=== PATIENT | female | born 1985 | race African-American/Black ===

== ENCOUNTER 2017-01-23 11:12 | Inpatient (IN) | payer OTHER ==
[~2017-01-23] VITALS: Ht 175.3 cm; Wt 63.0 kg
[2017-01-23] MEDS ORDERED: NKM (12:42)
[2017-01-23 12:43] VITALS: BP 99/56
[2017-01-23 12:55] LABS: APPEARANCE,URINE CLEAR; KETONES,URINE 1+ (NEGATIVE); LEUKOCYTE ESTERASE ,URINE 1+ (NEGATIVE); NITRITE,URINE NEGATIVE (NEGATIVE); PH,URINE 6.5 (4.5-8.0); PROTEIN,URINE 1+ (NEGATIVE); UROBILINOGEN,URINE NORMAL MG/DL (0.0-1.0)
[2017-01-23 13:24] LABS: BACTERIA,URINE FEW /HPF; MUCUS,URINE FEW /LPF (NONE/OCC); RBC,URINE 0-2 /HPF (0 - 2); SQUAMOUS EPITHELIAL CELL,UR FEW /LPF (NONE/OCC)
[2017-01-23 13:52] VITALS: BP 99/62
--- NOTE | 2017-01-23 14:13 | Emergency Room Report ---
History of Present Illness General Chief Complaint: General Complaint Source: Patient Present Illness HPI This patient has a history of hydradenitis suppurativa. She is sent in by Dr. Cohen for her persistent hidradenitis suppurativa and for surgical treatment. Patient has no other complaints. Allergies: Coded Allergies: No Known Allergies (Unverified , 01/23/17) Patient History Past Medical History: none, see triage record Social History: Denies: alcohol use, drug use, smoking Last Menstrual Period: 2 weeks ago Now: No Reviewed Nursing Documentation: PMH: Agreed, PSxH: Agreed Nursing Documentation-PMH Past Medical History: No History, Except For Review of Systems All Other Systems: negative except mentioned in HPI Physical Exam Vital Signs Date Time Temp Pulse Resp B/P Pulse Ox O2 Delivery O2 Flow Rate FiO2 01/23/17 11:35 98.4 83 18 113/77 98 Room Air Sp02 EP Interpretation: reviewed, normal General Appearance: no apparent distress, alert, GCS 15, non-toxic Head: normocephalic, atraumatic Eyes: bilateral eye PERRL, bilateral eye normal inspection ENT: hearing grossly normal, normal pharynx, no angioedema, normal voice Neck: full range of motion, supple/symm/no masses Respiratory: chest non-tender, lungs clear, normal breath sounds, speaking full sentences Cardiovascular #1: regular rate, rhythm, no edema Gastrointestinal: normal bowel sounds, non tender, soft, non-distended, no guarding, no rebound Rectal: deferred Musculoskeletal: back normal, gait/station normal, normal range of motion, non- tender Neurologic: alert, oriented x3, responsive, motor strength/tone normal, sensory intact, speech normal Psychiatric: judgement/insight normal, memory normal, mood/affect normal, no suicidal/homicidal ideation Skin: warm/dry, well hydrated, other - Buttock nodules c/w hidradinitis Medical Decision Making Diagnostic Impression: Primary Impression: Hidradenitis suppurativa ER Course This patient has hidradenitis suppurativa that is resistant to conservative treatment. Patient is admitted for surgical treatment by Dr. Cohen. Labs Test 01/23/17 12:18 01/23/17 14:09 Urine Color Yellow Urine Appearance Clear Urine pH 6.5 (4.5-8.0) Urine Specific [place] 1.015 (1.005-1.035) Urine Protein 1+ (NEGATIVE) Urine Glucose (UA) Negative (NEGATIVE) Urine Ketones 1+ (NEGATIVE) Urine Occult Blood Negative (NEGATIVE) Urine Nitrite Negative (NEGATIVE) Urine Bilirubin Negative (NEGATIVE) Urine Urobilinogen Normal MG/DL (0.0-1.0) Urine Leukocyte Esterase 1+ (NEGATIVE) Urine RBC 0-2 /HPF (0 - 2) Urine WBC 2-4 /HPF (0 - 2) Urine Squamous Epithelial Cells Few /LPF (NONE/OCC) Urine Bacteria Few /HPF (NONE) Urine Mucus Few /LPF (NONE/OCC) Urine HCG, Qualitative Negative White Blood Count 4.6 K/UL (4.8-10.8) Red Blood Count 4.98 M/UL (4.20-5.40) Hemoglobin 15.1 G/DL (12.0-16.0) Hematocrit 46.3 % (37.0-47.0) Mean Corpuscular Volume 93 FL (80-99) Mean Corpuscular Hemoglobin 30.3 PG (27.0-31.0) Mean Corpuscular Hemoglobin Concent 32.5 G/DL (32.0-36.0) Red Cell Distribution Width 11.6 % (11.6-14.8) Platelet Count 314 K/UL (150-450) Mean Platelet Volume 6.5 FL (6.5-10.1) Neutrophils (%) (Auto) 48.4 % (45.0-75.0) Lymphocytes (%) (Auto) 45.3 % (20.0-45.0) Monocytes (%) (Auto) 4.1 % (1.0-10.0) Eosinophils (%) (Auto) 1.1 % (0.0-3.0) Basophils (%) (Auto) 1.2 % (0.0-2.0) Last Vital Signs Date Time Temp Pulse Resp B/P Pulse Ox O2 Delivery O2 Flow Rate FiO2 01/23/17 13:52 64 16 99/62 100 Room Air 01/23/17 11:35 98.4 Disposition: ADMITTED INPATIENT Condition: Stable Referrals: MACY CHO (PCP) PAPO ZHANG D.O. January 23, 2017 14:13
[2017-01-23 14:27] LABS: BASOPHILS % (AUTO) 1.2 % (0.0-2.0); EOSINOPHILS % (AUTO) 1.1 % (0.0-3.0); LYMPHOCYTES % (AUTO) 45.3 % (20.0-45.0); MEAN CORPUSCULAR HEMOGLOBIN 30.3 PG (27.0-31.0); MEAN CORPUSCULAR HGB CONC 32.5 G/DL (32.0-36.0); MEAN CORPUSCULAR VOLUME 93 FL (80-99); MEAN PLATELET VOLUME 6.5 FL (6.5-10.1); MONOCYTES % (AUTO) 4.1 % (1.0-10.0); NEUTROPHILS % (AUTO) 48.4 % (45.0-75.0); PLATELET COUNT 314 K/UL (150-450); RED BLOOD COUNT 4.98 M/UL (4.20-5.40); RED CELL DISTRIBUTION WIDTH 11.6 % (11.6-14.8); WHITE BLOOD COUNT 4.6 K/UL (4.8-10.8)
[2017-01-23] MEDS ORDERED: Milk of Magnesia 30ml Ud ORAL PRN (15:15)
[2017-01-23] MEDS ORDERED: Morphine Sulfate 2mg/ml Inj IVP PRN (15:15)
[2017-01-23] MEDS ORDERED: Zolpidem 5mg tab ORAL PRN (15:15)
[2017-01-23] MEDS ORDERED: Morphine Sulfate 4mg/ml Inj IVP PRN (15:15)
[2017-01-23] MEDS ORDERED: Miralax 17gm pkt ORAL PRN (15:15)
[2017-01-23] MEDS ORDERED: Norco 10mg/325mg tab ORAL PRN (15:30)
[2017-01-23] MEDS ORDERED: Norco 5mg/325mg tab ORAL PRN (15:30)
--- NOTE | 2017-01-23 15:31 | History and Physical ---
History of Present Illness General Date patient seen: January 23, 2017 Time patient seen: 15:30 Reason for Hospitalization: abscess Present Illness HPI 31y/o female with pmh of hidradenitis suppurative who presents with abscess. Pt has noted increased pain and drainage of L buttock abscess. She notes purulent drainage. Denies fevers/chills, chest pain, SOB, n/v. She has tried oral antibiotics without a good response. Allergies: Coded Allergies: No Known Allergies (Unverified , 01/23/17) Medication History Scheduled No Known Medications* (NKM - No Known Medications*), 0 ., (Reported) Patient History History Provided By: Patient, Medical Record, PMD Healthcare decision maker Resuscitation status Advanced Directive on File Past Medical/Surgical History Past Medical/Surgical History: (1) Hidradenitis suppurativa Family History Family History: Patient reports no known family medical history. Social History Social History: (1) No significant social history Review of Systems ROS Narrative CONSTITUTIONAL: No weight loss, fever, chills, weakness or fatigue. HEENT: Eyes: No visual loss, blurred vision, double vision or yellow sclerae. Ears, Nose, Throat: No hearing loss, sneezing, congestion, runny nose or sore throat. SKIN: No rash or itching. CARDIOVASCULAR: No chest pain, chest pressure or chest discomfort. No palpitations or edema. RESPIRATORY: No shortness of breath, cough or sputum. GASTROINTESTINAL: No anorexia, nausea, vomiting or diarrhea. No abdominal pain or blood. NEUROLOGICAL: No headache, dizziness, syncope, paralysis, ataxia, numbness or tingling in the extremities. No change in bowel or bladder control. MUSCULOSKELETAL: No muscle, back pain, joint pain or stiffness. HEMATOLOGIC: No anemia, bleeding or bruising. LYMPHATICS: No enlarged nodes. No history of splenectomy. PSYCHIATRIC: No history of depression or anxiety. ENDOCRINOLOGIC: No reports of sweating, cold or heat intolerance. No polyuria or polydipsia. ALLERGIES: No history of asthma, hives, eczema or rhinitis. Physical Exam Physical Exam Narrative General: alert, cooperative, no distress, appears stated age Head: normocephalic, without obvious abnormality, atraumatic Eyes: conjunctivae/corneas clear. PERRL, EOM's intact Throat: lips, mucosa, and tongue normal. MMM Neck: supple, symmetrical, trachea midline, and no JVD Lungs: clear to auscultation bilaterally Heart: regular rate and rhythm, S1, S2 normal, no murmur, click, rub or gallop Abdomen: soft, non-tender, non-distended, bowel sounds normal; no masses or organomegaly Extremities: extremities normal, atraumatic, no cyanosis or edema Pulses: 2+ and symmetric Skin: skin color, texture, turgor normal; +abscesses of L buttocks Neurologic: grossly normal, no focal deficits Last 24 Hour Vital Signs Date Time Temp Pulse Resp B/P Pulse Ox O2 Delivery O2 Flow Rate FiO2 01/23/17 13:52 64 16 99/62 100 Room Air 01/23/17 12:43 67 27 99/56 100 Room Air 01/23/17 11:35 98.4 83 18 113/77 98 Room Air Laboratory Tests Test 01/23/17 12:18 01/23/17 14:09 01/23/17 15:20 Urine Color Yellow Urine Appearance Clear Urine pH 6.5 (4.5-8.0) Urine Specific [place] 1.015 (1.005-1.035) Urine Protein 1+ (NEGATIVE) H Urine Glucose (UA) Negative (NEGATIVE) Urine Ketones 1+ (NEGATIVE) H Urine Occult Blood Negative (NEGATIVE) Urine Nitrite Negative (NEGATIVE) Urine Bilirubin Negative (NEGATIVE) Urine Urobilinogen Normal MG/DL (0.0-1.0) Urine Leukocyte Esterase 1+ (NEGATIVE) H Urine RBC 0-2 /HPF (0 - 2) Urine WBC 2-4 /HPF (0 - 2) Urine Squamous Epithelial Cells Few /LPF (NONE/OCC) Urine Bacteria Few /HPF (NONE) Urine Mucus Few /LPF (NONE/OCC) H Urine HCG, Qualitative Negative White Blood Count 4.6 K/UL (4.8-10.8) L Red Blood Count 4.98 M/UL (4.20-5.40) Hemoglobin 15.1 G/DL (12.0-16.0) Hematocrit 46.3 % (37.0-47.0) Mean Corpuscular Volume 93 FL (80-99) Mean Corpuscular Hemoglobin 30.3 PG (27.0-31.0) Mean Corpuscular Hemoglobin Concent 32.5 G/DL (32.0-36.0) Red Cell Distribution Width 11.6 % (11.6-14.8) Platelet Count 314 K/UL (150-450) Mean Platelet Volume 6.5 FL (6.5-10.1) Neutrophils (%) (Auto) 48.4 % (45.0-75.0) Lymphocytes (%) (Auto) 45.3 % (20.0-45.0) H Monocytes (%) (Auto) 4.1 % (1.0-10.0) Eosinophils (%) (Auto) 1.1 % (0.0-3.0) Basophils (%) (Auto) 1.2 % (0.0-2.0) Prothrombin Time Pending Prothromb Time International Ratio Pending Activated Partial Thromboplast Time Pending Sodium Level Pending Potassium Level Pending Chloride Level Pending Carbon Dioxide Level Pending Blood Urea Nitrogen Pending Creatinine Pending Estimat Glomerular Filtration Rate Pending Glucose Level Pending Calcium Level Pending Height (Feet): 5 Height (Inches): 9.00 Weight (Pounds): 139 Medications Current Medications Medications (Trade) Dose Ordered Sig/Keith Route PRN Reason Start Time Stop Time Status Last Admin Dose Admin Acetaminophen (Tylenol) 650 mg Q4H PRN ORAL Mild Pain (Pain Scale 1-3) 01/23/17 15:15 02/22/17 15:14 UNV Acetaminophen/ Hydrocodone Bitart (Logan 10/325) 1 ea Q4H PRN ORAL For severe Pain 01/23/17 15:30 01/30/17 15:29 UNV Acetaminophen/ Hydrocodone Bitart ([place] 5/325) 1 tab Q4H PRN ORAL Moderate Pain (Pain Scale 4-6) 01/23/17 15:30 01/30/17 15:29 UNV Bisacodyl (Dulcolax) 10 mg HSPRN PRN RECTAL Constipation 01/23/17 15:15 02/22/17 15:14 UNV Cefazolin Sodium/ Dextrose (Ancef/D5W) 55 ml @ 110 mls/hr Q8HR IVPB 01/23/17 22:00 01/30/17 21:59 UNV Dextrose STAT PRN IV Hypoglycemia 01/23/17 15:15 02/22/17 15:14 UNV Dextrose/Sodium Chloride (D5 0.45% NS) 1,000 ml @ 75 mls/hr [id number] IV 01/24/17 06:00 02/23/17 05:59 UNV Diphenhydramine HCl (Benadryl) 25 mg Q6H PRN ORAL Itching/Pruritis 01/23/17 15:15 02/22/17 15:14 UNV Docusate Sodium (Colace) 100 mg EVERY 12 HOURS ORAL 01/24/17 09:00 02/23/17 08:59 UNV Magnesium Hydroxide (Mom) 30 ml HSPRN PRN ORAL Constipation 01/23/17 15:15 02/22/17 15:14 UNV Morphine Sulfate (Morphine Sulfate) 2 mg Q4H PRN IVP Moderate Pain (Pain Scale 4-6) 01/23/17 15:15 01/30/17 15:14 UNV Morphine Sulfate (Morphine Sulfate) 4 mg Q4H PRN IVP Severe Pain (Pain Scale 7-10) 01/23/17 15:15 01/30/17 15:14 UNV Ondansetron HCl (Zofran) 4 mg Q6H PRN IVP Nausea & Vomiting 01/23/17 15:30 02/22/17 15:29 UNV Polyethylene Glycol (Miralax) 17 gm HSPRN PRN ORAL Constipation 01/23/17 15:15 02/22/17 15:14 UNV Zolpidem Tartrate (Ambien) 5 mg HSPRN PRN ORAL Insomnia 01/23/17 15:15 02/22/17 15:14 UNV Assessment/Plan Problem List: (1) Abscess ICD Codes: L02.91 - Cutaneous abscess, unspecified SNOMED: 404151925 (2) Hidradenitis suppurativa ICD Codes: L73.2 - Hidradenitis suppurativa SNOMED: 68242716 Status: stable Assessment/Plan Admit to inpt Plastic surgery consulted Check blood cultures Start IV abx (01/23-) Pain control, bowel regimen, supportive care IVFs If patient is required to have surgery, based on the patient's medical history, and other available ancillary data, the patient is a LOW risk for an INTERMEDIATE risk procedure. Per the most recent ACC/AHA guidelines, the patient does not need any further cardiopulmonary testing prior to the procedure and there do not appear to be any clear medical contraindications to proceeding with the proposed procedure. Gayle Perez M.D. January 23, 2017 15:31
[2017-01-23 15:52] LABS: ANION GAP 12 (5-15); CALCIUM 9.3 mg/dL (8.6-10.2); CARBON DIOXIDE 27 mEQ/L (20-30); CHLORIDE 100 mEQ/L (98-107); CREATININE 0.7 mg/dL (0.5-0.9); GLOMERULAR FILTRATION RATE > 60 mL/min (>60); HEMOLYSIS 4; POTASSIUM 3.7 mEQ/L (3.4-4.9); SODIUM 139 mEQ/L (135-145)
[2017-01-23 15:57] LABS: PROTHROMBIN TIME 10.6 SEC (9.30-11.50)
[2017-01-23] MEDS ORDERED: ceFAZolin sod 1 GM in D5W 55 ML IVPB SCH (16:00)
[2017-01-23] MEDS: D5 1/2NS 1,000 ML IV SCH (16:00)
[2017-01-23] MEDS ORDERED: NS 0 ML IV ONE (16:59)
[2017-01-23 18:23] VITALS: BP 106/52
[2017-01-23] MEDS ORDERED: LORazepam 1mg tab ORAL PRN (19:45)
[2017-01-23 20:08] VITALS: BP 107/68
[2017-01-23] MEDS: Docusate 100mg cap ORAL SCH (21:24)
[2017-01-23 23:59] VITALS: BP 125/76
[2017-01-24] VITALS (16 sets, daily range): BP systolic 97–125; BP diastolic 53–76
[2017-01-24] MEDS: D5 1/2NS 1,000 ML IV SCH ×2 (04:48→17:00)
[2017-01-24] MEDS: Docusate 100mg cap ORAL SCH ×2 (08:58→20:18)
[2017-01-24] MEDS: ceFAZolin sod 1 GM in D5W 55 ML IVPB SCH ×2 (09:00→17:00)
--- NOTE | 2017-01-24 09:55 | Diagnostic Imaging Report ---
Indication: Chest Pain Comparison: None A single view chest radiograph was obtained. Findings: Cardiomediastinal appearance is within normal limits for age. Pulmonary vascularity is appropriate. The diaphragmatic contour is smooth and costophrenic angles are sharp. No pleural effusions are identified. The bones are unremarkable. Impression: No acute findings
[2017-01-24] MEDS ORDERED: Lidocaine 1% Plain 30 ml INJ ONE (10:00)
[2017-01-24] MEDS ORDERED: Heparin 2000 units/Ns 1000ml INJ ONE (10:00)
[2017-01-24] MEDS ORDERED: Sodium Bicarbonate 8.4% 50ml Inj IV ONE (10:00)
[2017-01-24] MEDS ORDERED: Lidocaine 1% 10mg/ml/Epi 0.005mg/ml 30ml vial INJ ONE (10:28)
[2017-01-24] MEDS ORDERED: Bacitracin 50000 Units Vial ONE (10:28)
[2017-01-24] MEDS ORDERED: Neostigmine 1mg/ml 10ml Inj ONE (10:45)
[2017-01-24] MEDS ORDERED: Morphine Sulfate 10mg/ml Inj ONE (10:45)
[2017-01-24] MEDS ORDERED: Midazolam 2mg/2ml Inj ONE (10:45)
[2017-01-24] MEDS ORDERED: DiphenhydrAMINE 50mg/ml Inj IVP PRN ×2 (10:45→14:00)
[2017-01-24] MEDS ORDERED: Ketorolac 30mg Inj ONE (10:45)
[2017-01-24] MEDS ORDERED: Glycopyrrolate 0.2mg/ml 1ml Vial ONE (10:45)
[2017-01-24] MEDS ORDERED: Zemuron 50mg/5ml Inj IV ONE ×2 (10:45→10:54)
[2017-01-24] MEDS ORDERED: LR 1000ml ONE (10:45)
[2017-01-24] MEDS ORDERED: fentaNYL 100 mcg/2 mL IV ONE (10:45)
[2017-01-24] MEDS ORDERED: Succinylcholine 20mg/ml 10ml vial ONE (10:45)
[2017-01-24] MEDS ORDERED: Sterile Water Irrig 1000ml IRRIG ONE (10:45)
[2017-01-24] MEDS ORDERED: Zolpidem 5mg tab ORAL PRN (10:45)
[2017-01-24] MEDS ORDERED: Propofol 10mg/ml 20ml IV ONE (10:45)
[2017-01-24] MEDS ORDERED: NS Irrig 1000ml ONE (10:45)
--- NOTE | 2017-01-24 10:45 | Pre-Procedure Note/Attestation ---
Pre-Procedure Note/Attestation Complete Prior to Procedure Planned Procedure: left Procedure Narrative: Left buttock debridement and flap elevation Attestation I attest that I discussed the nature of the procedure; its benefits; risks and complications; and alternatives (and the risks and benefits of such alternatives ), prior to the procedure, with the patient (or the patient's legal direct sales representative). I attest that, if there was a reasonable possibility of needing a blood transfusion, the patient (or the patient's legal direct sales representative) was given the [facility] standardized written summary, pursuant to the Bernard Fredis Blood Safety Act ([place] Health and Safety Code # 1645, as amended). I attest that I re-evaluated the patient just prior to the surgery and that there has been no change in the patient's H&P, except as documented below: MACY CHO January 24, 2017 10:45
--- NOTE | 2017-01-24 10:51 | Operative Note - PDOC ---
Operative Note Operative Note Pre-op Diagnosis: Left buttock infected mass Procedure: Excision of left buttock mass Post-op Diagnosis: same as pre-op Surgeon: Minnie Camera Control Operator: Bethel Anesthesia: general Specimen: yes Complications: none Condition: stable Estimated Blood Loss: none Drains: none Implant(s) used?: No MACY CHO January 24, 2017 10:51
--- NOTE | 2017-01-24 11:13 | Diagnostic Imaging Report ---
Indication: terminal operator venous access Findings: After the indications, procedure, risks, complications, and alternatives of the procedure were explained, written informed consent was obtained. The left upper extremity was prepped with alcohol. All elements of maximal sterile barrier technique were followed including usage of a cap, mask, sterile gown, sterile gloves, hand hygiene and a large sterile sheet. Sonographic evaluation of the upper extremity was performed demonstrating a patent and compressible brachial vein. Access was obtained under real-time ultrasound guidance and digital image was saved and archived. An .018 wire was introduced. Needle exchanged for a 5 Icelandic peel-away sheath. Measurements were obtained. A 5 Icelandic dual-lumen Power PICC line catheter was cut to 43 cm and introduced over the wire. Peel-away sheath and wire were removed.Catheter was secured to the skin using 2-0 Prolene suture. Both ports aspirate and flush easily. Fluoroscopic Images show distal tip in the superior vena cava. Total fluoroscopic time 0.2 minutes. Impression: Successful placement of an upper extremity PICC line catheter
--- NOTE | 2017-01-24 13:44 | Anethesia Preoperative Eval ---
Anesthesia Pre-op PMH/ROS General Date of Evaluation: January 24, 2017 Time of Evaluation: 10:40 Anesthesiologist: Kelley ASA Score: ASA 2 Mallampati Score Class I : Soft palate, uvula, fauces, pillars visible Class II: Soft palate, uvula, fauces visible Class III: Soft palate, base of uvula visible Class IV: Only hard plate visible Mallampati Classification: Class II Surgeon: Minnie Diagnosis: L groin HS Surgical Procedure: Excision of L groin HS Anesthesia History: none Family History: no anesthesia problems Allergies: Coded Allergies: No Known Allergies (Unverified , 01/23/17) Medications: see eMAR Past Medical History Cardiovascular: Denies: CAD, HTN, [place], arrhythmia, other, valve dz Pulmonary: Denies: COPD, JOHN, asthma, other Gastrointestinal/Genitourinary: Reports: GERD, Denies: CRI, ESRD, other Neurologic/Psychiatric: Denies: CVA, TIA, dementia, depression/anxiety, other Endocrine: Denies: DM, hypothyroidism, other, steroids HEENT: Denies: OMAHA (L), OMAHA (R), cataract (L), cataract (R), glaucoma, other Hematology/Immune: Denies: DVT, anemia, bleeding disorder, other Musculoskeletal/Integumentary: Denies: DDD, DJD, OA, RA, edema, other PMH Narrative: as above PSxH Narrative: Pilonidal cyst Anesthesia Pre-op Phys. Exam Physician Exam Last Vital Signs Date Time Temp Pulse Resp B/P Pulse Ox O2 Delivery O2 Flow Rate FiO2 01/24/17 13:15 48 15 97/60 100 Nasal Cannula 2.0 01/24/17 12:14 98.5 Constitutional: NAD Neurologic: CN 2-12 intact Cardiovascular: RRR Respiratory: CTA Gastrointestinal: S/NT/ND Airway Exam Mallampati Score: Class II MO: full Neck: flexible ROM: full Teeth: intact Dentures: no lower, no upper Anesthesia Pre-op A/P Labs Hematology Test 01/23/17 14:09 White Blood Count 4.6 K/UL (4.8-10.8) L Red Blood Count 4.98 M/UL (4.20-5.40) Hemoglobin 15.1 G/DL (12.0-16.0) Hematocrit 46.3 % (37.0-47.0) Mean Corpuscular Volume 93 FL (80-99) Mean Corpuscular Hemoglobin 30.3 PG (27.0-31.0) Mean Corpuscular Hemoglobin Concent 32.5 G/DL (32.0-36.0) Red Cell Distribution Width 11.6 % (11.6-14.8) Platelet Count 314 K/UL (150-450) Mean Platelet Volume 6.5 FL (6.5-10.1) Neutrophils (%) (Auto) 48.4 % (45.0-75.0) Lymphocytes (%) (Auto) 45.3 % (20.0-45.0) H Monocytes (%) (Auto) 4.1 % (1.0-10.0) Eosinophils (%) (Auto) 1.1 % (0.0-3.0) Basophils (%) (Auto) 1.2 % (0.0-2.0) Coagulation Test 01/23/17 15:20 Prothrombin Time 10.6 SEC (9.30-11.50) Prothromb Time International Ratio 1.0 (0.9-1.1) Activated Partial Thromboplast Time 30 SEC (23-33) Chemistry Test 01/23/17 15:20 Sodium Level 139 mEQ/L (135-145) Potassium Level 3.7 mEQ/L (3.4-4.9) Chloride Level 100 mEQ/L (98-107) Carbon Dioxide Level 27 mEQ/L (20-30) Anion Gap 12 (5-15) Blood Urea Nitrogen 21 mg/dL (7-23) Creatinine 0.7 mg/dL (0.5-0.9) Estimat Glomerular Filtration Rate > 60 mL/min (>60) Glucose Level 96 mg/dL (74-106) Calcium Level 9.3 mg/dL (8.6-10.2) Risk Assessment & Plan Assessment: ASA 2 Plan: GA with ETT prone position Status Change Before Surgery: No Pre-Antibiotics Drug: Ancef 1gr. Given Within 1 Hr of Incision: Yes Time Given: 10:55 MARIA ALEJANDRE M.D. January 24, 2017 13:44
[2017-01-24] MEDS ORDERED: LR 1000ml 1,000 ML IVLG SCH (13:46)
--- NOTE | 2017-01-24 13:46 | Immediate Post-Op Evaluation ---
Immediate Post-Op Evalulation Immediate Post-Op Evalulation Procedure: Excision of L groin HS Date of Evaluation: January 24, 2017 Time of Evaluation: 12:18 IV Fluids: 800 Blood Products: n0ne Estimated Blood Loss: 50 Urinary Output: none Blood Pressure Systolic: 116 Blood Pressure Diastolic: 54 Pulse Rate: 76 Respiratory Rate: 20 O2 Sat by Pulse Oximetry: 99 Temperature (Fahrenheit): 97.6 Pain Score (1-10): 2 Nausea: No Vomiting: No Complications NONE Patient Status: reacts, patent, extubated, none Hydration Status: adequate MARIA ALEJANDRE M.D. January 24, 2017 13:46
[2017-01-24] MEDS ORDERED: Midazolam 2mg/2ml Inj IVP PRN (14:00)
[2017-01-24] MEDS ORDERED: Metoclopramide 10mg/2ml Inj IVP PRN (14:00)
[2017-01-24] MEDS ORDERED: Meperidine 25mg/0.5ml Inj IV PRN (14:00)
[2017-01-24] MEDS ORDERED: Hydromorphone 0.5mg/0.5ml inj IVP PRN (14:00)
[2017-01-24] MEDS: PCA HYDROmorphone 1mg/ml 30 ML IV PRN (14:12)
[2017-01-24] MEDS ORDERED: Rate Change PCA 1 Each MISC PRN (14:30)
--- NOTE | 2017-01-24 15:49 | Cardiology Report ---
APPROVED REPORT EKG Measurement Heart [id number] CT [id number] Sinus bradycardia Otherwise normal ECG
[2017-01-24] MEDS ORDERED: NovoLOG Insulin Flexpen SUBQ SCH (17:00)
--- NOTE | 2017-01-24 17:48 | General Progress Note ---
Assessment/Plan Problem List: (1) Abscess ICD Codes: L02.91 - Cutaneous abscess, unspecified SNOMED: 852808522 (2) Hidradenitis suppurativa ICD Codes: L73.2 - Hidradenitis suppurativa SNOMED: [id number] Status: stable Assessment/Plan s/p excision of left buttock mass on 01/24/17 - [facility] plastic surgery rec's - cont IV abx - F/u cultures - encourage mobilization/ambulation - encourage incentive spirometry to optimize pulmonary hygiene - DVT/GI prophylaxis as appropriate - pain control, supportive care, bowel regimen FULL CODE A total of 32min of extra time was spent [id number] in addition to normal encounter time. D/w pt, RN, surgery regarding mgmt and disposition Subjective Date patient seen: January 24, 2017 Time patient seen: 17:45 ROS Limited/Unobtainable: No Constitutional: Reports: no symptoms HEENT: Reports: no symptoms Cardiovascular: Reports: no symptoms Respiratory: Reports: no symptoms Gastrointestinal/Abdominal: Reports: no symptoms Genitourinary: Reports: no symptoms Neurologic/Psychiatric: Reports: no symptoms Endocrine: Reports: no symptoms Hematologic/Lymphatic: Reports: no symptoms Allergies: Coded Allergies: No Known Allergies (Unverified , 01/23/17) Subjective s/p excision of left buttock mass today Doing well Pain controlled Tolerating diet Denies f/c, n/v, d/c, chest pain, SOB Objective Last 24 Hour Vital Signs Date Time Temp Pulse Resp B/P Pulse Ox O2 Delivery O2 Flow Rate FiO2 01/24/17 16:00 97.7 53 20 110/68 99 Room Air 01/24/17 15:59 18 01/24/17 15:29 18 01/24/17 15:14 18 01/24/17 14:59 20 01/24/17 14:50 97.2 50 20 108/56 97 Room Air 01/24/17 14:44 20 01/24/17 14:42 98.6 01/24/17 14:20 20 01/24/17 14:15 98.6 59 15 102/64 100 Room Air 01/24/17 14:12 20 01/24/17 14:00 51 15 100/57 100 Room Air 01/24/17 13:46 76 20 99 01/24/17 13:45 46 15 102/54 100 Room Air 01/24/17 13:30 48 15 101/56 100 Room Air 01/24/17 13:15 48 15 97/60 100 Nasal Cannula 2.0 01/24/17 13:00 50 15 99/58 100 Nasal Cannula 2.0 01/24/17 12:45 54 16 101/63 100 Nasal Cannula 2.0 01/24/17 12:35 47 20 101/54 100 Nasal Cannula 2.0 01/24/17 12:24 48 20 99/54 100 Nasal Cannula 2.0 01/24/17 12:19 48 20 98/55 100 Simple Mask 10.0 01/24/17 12:14 98.5 59 20 111/64 100 Simple Mask 10.0 01/24/17 08:00 97.3 64 20 118/61 98 Room Air 01/24/17 04:00 97.7 74 16 104/53 99 Room Air 01/23/17 23:59 97.7 72 19 125/76 100 Room Air 01/23/17 20:08 97.7 67 19 107/68 96 Room Air 01/23/17 18:30 98.4 60 13 106/52 100 Room Air 01/23/17 18:23 60 13 106/52 100 Room Air Intake and Output 01/23/17 01/24/17 19:00 07:00 Intake Total 480 ml Output Total 200 ml Balance -200 ml 480 ml Intake Oral 480 ml Output Urine Total 200 ml # Voids 3 Height (Feet): 5 Height (Inches): 9.00 Weight (Pounds): 139 Objective General: alert, cooperative, no distress, appears stated age Head: normocephalic, without obvious abnormality, atraumatic Eyes: conjunctivae/corneas clear. PERRL, EOM's intact Throat: lips, mucosa, and tongue normal. MMM Neck: supple, symmetrical, trachea midline, and no JVD Lungs: clear to auscultation bilaterally Heart: regular rate and rhythm, S1, S2 normal, no murmur, click, rub or gallop Abdomen: soft, non-tender, non-distended, bowel sounds normal; no masses or organomegaly Extremities: extremities normal, atraumatic, no cyanosis or edema Pulses: 2+ and symmetric Skin: skin color, texture, turgor normal; no rashes or lesions Neurologic: grossly normal, no focal deficits Gayle Perez M.D. January 24, 2017 17:48
[2017-01-24] MEDS: PCA shift volume MISC SCH (19:29)
[2017-01-24] MEDS: Heparin 5000 units/ml inj SUBQ SCH (20:25)
--- NOTE | 2017-01-24 20:39 | Operative Note - Dictated ---
DATE OF OPERATION: 01/24/2017 PREOPERATIVE DIAGNOSIS: Left buttock and left vulvar infected tissue. POSTOPERATIVE DIAGNOSIS: Left buttock and left vulvar infected tissue. PROCEDURES: 1. Radical excision of left buttock infected mass. 2. Excision of left vulvar infected mass. 3. Elevation of a lateral fasciocutaneous flap for delayed closure of left buttock wound. 4. Elevation of a medial fasciocutaneous flap for delayed closure of left buttock wound. SURGEON: Bety Hartman M.D. SUPERVISOR ASSEMBLING: Eleazar Hugo M.D. ANESTHESIA: General. POSITION: Prone. COMPLICATIONS: None. DRAINS: None. ESTIMATED BLOOD LOSS: Minimal. DISPOSITION: Stable to the recovery room. INDICATIONS FOR SURGERY: This is a 31-year-old female, who presents to the emergency room with infected tissue in her left buttock and left vulvar region complaining of significant pain and drainage in the areas. On evaluation by me, I felt that she was an appropriate candidate for excision of the infected tissue with staged reconstruction. She understood the risks and benefits of surgery and agreed to proceed. DETAILS OF THE OPERATION: The patient was brought to the operating room and after induction of anesthesia was placed in the prone position on the operating room table. The patient's lower back, buttock and perineal regions were prepped and draped in a sterile and usual fashion. We first began by using a marking pen to delineate the two separate areas, one in the left buttock and the other in the left inferior valvular region to delineate elliptical type of incision to be made to excise the tissue. Once this was done, a #15 blade was then used to make elliptical incision around the left buttock mass with the radical excision performed all the way down to the level of the subcutaneous fat. We did come across some purulent fluid, which was then sent for culture as well. Once the infected mass was radically excised, we then turned our attention to the left inferior vulvar tissue. In a similar fashion this tissue was excised in an elliptical fashion all way down to healthy subcutaneous fat. We noted that the left vulvar tissue did not required flap elevation for closure as it was amenable to likely complex closure at a second stage, however, the left buttock wound was quite large measuring approximately 6 x 5 centimeters and was not amenable to direct primary closure. As such, the two flaps were elevated on either side of the wound, first the medial aspect of the tissue was elevated and fasciocutaneous flap was elevated with proximal and distal incisions made to fully mobilize the flap with perforators off of the pudendal artery feeding this flap. In a similar fashion, a laterally based fasciocutaneous flap based off of the perforators of the inferior gluteal artery was elevated as well and it was noted that with this elevation, the flaps could be brought together in proximity without tension, however, given the fact this was an infected case, thus the plan will be to perform a staged closure of the wound in 48 to 72 hours. The wounds were then copiously irrigated. Pulse lavage was used for this purpose. Hemostasis was achieved and the wound were then packed with dressings. The patient tolerated the procedure well and there was no complications. Bety Hartman M.D. DR: MARC JOB#: [id number] CC:
--- NOTE | 2017-01-24 21:09 | Consultation ---
DATE OF CONSULTATION: 01/24/2017 CONSULTING PHYSICIAN: Bety Hartman M.D. REFERRING PHYSICIAN: Shasta Wilkes M.D. HISTORY OF PRESENT ILLNESS: This is a 31-year-old female, who presented to the emergency room with a very painful left buttock abscess. She was started on IV antibiotics. She had been complaining of several days of pain and drainage in the area. PAST MEDICAL HISTORY: Significant for hidradenitis suppurativa. PAST SURGICAL HISTORY: None. MEDICATIONS: None. ALLERGIES: None. PHYSICAL EXAMINATION: GENERAL: The patient is alert and oriented. HEART: Regular rate and rhythm. ABDOMEN: Soft, nontender, and nondistended. EXTREMITIES: Examination of the trunk and lower extremity reveals a large abscess in the region of the left buttock and there is infected mass extending into the perivulvar region on the left side. ASSESSMENT AND PLAN: This is a 31-year-old female, who has got an infected left buttock mass. The patient will be taken to the operating room for wide excision of the area with flap elevation. The patient understands that this will require a staged approach given the fact that this is an infected field. On the first day it will be removing an infected tissue and then on second day, it will be definitive closure of the wound. She understands the risks and benefits and agrees to proceed. Bety Hartman M.D. DR: MEDHAT JOB#: [id number] CC:
[2017-01-25] VITALS: BP 108/63
[2017-01-25] MEDS: ceFAZolin sod 1 GM in D5W 55 ML IVPB SCH ×3 (01:14→17:19)
[2017-01-25 04:00] VITALS: BP 104/65
[2017-01-25] MEDS: PCA shift volume MISC SCH ×2 (07:06→19:00)
[2017-01-25] MEDS: D5 1/2NS 1,000 ML IV SCH ×2 (07:31→21:53)
[2017-01-25 08:00] VITALS: BP 94/33
[2017-01-25] MEDS: Docusate 100mg cap ORAL SCH ×2 (08:17→21:52)
[2017-01-25] MEDS: Heparin 5000 units/ml inj SUBQ SCH ×2 (08:22→21:55)
--- NOTE | 2017-01-25 10:25 | General Progress Note ---
Progress Note Progress Note Pt seen and examined. POD# 1 from debridement of left buttock and flap elevation. Dressings in place. Plan for OR on Monday. MACY Bolton MD January 25, 2017 10:25
--- NOTE | 2017-01-25 10:42 | General Progress Note ---
Assessment/Plan Problem List: (1) Hidradenitis suppurativa ICD Codes: L73.2 - Hidradenitis suppurativa SNOMED: 88536705 (2) Abscess ICD Codes: L02.91 - Cutaneous abscess, unspecified SNOMED: 392788117 Assessment/Plan s/p excision of left buttock mass on 01/24/17 - [facility] plastic surgery rec's - cont IV abx - F/u cultures - encourage mobilization/ambulation - encourage incentive spirometry to optimize pulmonary hygiene - DVT/GI prophylaxis as appropriate - pain control, supportive care, bowel regimen FULL CODE A total of 31min of extra time was spent [id number] in addition to normal encounter time. D/w pt, RN, surgery regarding mgmt and disposition Subjective Date patient seen: January 25, 2017 Time patient seen: 10:39 ROS Limited/Unobtainable: No Allergies: Coded Allergies: No Known Allergies (Unverified , 01/23/17) Subjective No acute events overnight events, no chest pain or dyspnea, no n/v, postop pain well controlled Objective Last 24 Hour Vital Signs Date Time Temp Pulse Resp B/P Pulse Ox O2 Delivery O2 Flow Rate FiO2 01/25/17 08:00 97.5 46 16 94/33 99 Room Air 01/25/17 08:00 16 01/25/17 04:00 16 01/25/17 04:00 98.1 51 16 104/65 98 Room Air 01/25/17 00:00 97.7 52 18 108/63 100 Room Air 01/25/17 00:00 16 01/24/17 20:00 18 01/24/17 20:00 97.3 52 18 125/76 99 Room Air 01/24/17 16:29 20 01/24/17 16:00 97.7 53 20 110/68 99 Room Air 01/24/17 15:59 18 01/24/17 15:29 18 01/24/17 15:14 18 01/24/17 14:59 20 01/24/17 14:50 97.2 50 20 108/56 97 Room Air 01/24/17 14:44 20 01/24/17 14:42 98.6 01/24/17 14:20 20 01/24/17 14:15 98.6 59 15 102/64 100 Room Air 01/24/17 14:12 20 01/24/17 14:00 51 15 100/57 100 Room Air 01/24/17 13:46 76 20 99 01/24/17 13:45 46 15 102/54 100 Room Air 01/24/17 13:30 48 15 101/56 100 Room Air 01/24/17 13:15 48 15 97/60 100 Nasal Cannula 2.0 01/24/17 13:00 50 15 99/58 100 Nasal Cannula 2.0 01/24/17 12:45 54 16 101/63 100 Nasal Cannula 2.0 01/24/17 12:35 47 20 101/54 100 Nasal Cannula 2.0 01/24/17 12:24 48 20 99/54 100 Nasal Cannula 2.0 01/24/17 12:19 48 20 98/55 100 Simple Mask 10.0 01/24/17 12:14 98.5 59 20 111/64 100 Simple Mask 10.0 Intake and Output 01/24/17 01/25/17 19:00 07:00 Intake Total 925 ml 857.5 ml Output Total 50 ml 100 ml Balance 875 ml 757.5 ml Intake Oral 120 ml 240 ml IV Total 805 ml 617.5 ml Emesis 100 ml Estimated Blood Loss 50 ml # Voids 1 # Bowel Movements 1 Height (Feet): 5 Height (Inches): 9.00 Weight (Pounds): 139 Objective General: alert, cooperative, no distress, appears stated age Head: normocephalic, without obvious abnormality, atraumatic Eyes: conjunctivae/corneas clear. PERRL, EOM's intact Throat: lips, mucosa, and tongue normal. MMM Neck: supple, symmetrical, trachea midline, and no JVD Lungs: clear to auscultation bilaterally Heart: regular rate and rhythm, S1, S2 normal, no murmur, click, rub or gallop Abdomen: soft, non-tender, non-distended, bowel sounds normal; no masses or organomegaly Extremities: extremities normal, atraumatic, no cyanosis or edema Pulses: 2+ and symmetric Skin: skin color, texture, turgor normal; no rashes or lesions Neurologic: grossly normal, no focal deficits ASHWIN TORRES January 25, 2017 10:42
[2017-01-25 12:00] VITALS: BP 109/59
[2017-01-25] MEDS: PCA HYDROmorphone 1mg/ml 30 ML IV PRN (14:08)
[2017-01-25 16:00] VITALS: BP 116/64
--- NOTE | 2017-01-25 16:21 | 48 Hour Post Anesthesia Eval ---
Post Anesthesia Evaluation Procedure: Excision of L groin HS Date of Evaluation: January 25, 2017 Time of Evaluation: 16:20 Blood Pressure Systolic: 104 0: 56 Pulse Rate: 72 Respiratory Rate: 20 Temperature (Fahrenheit): 97.8 O2 Sat by Pulse Oximetry: 99 Airway: patent Nausea: No Vomiting: No Pain Intensity: 2 Hydration Status: adequate Cardiopulmonary Status: stable Mental Status/LOC: patient returned to baseline Follow-up Care/Observations: n/a Post-Anesthesia Complications: none Follow-up care needed: N/A MARIA ALEJANDRE M.D. January 25, 2017 16:21
[2017-01-25 20:00] VITALS: BP 106/58
[2017-01-26 00:21] VITALS: BP 103/87
[2017-01-26] MEDS: ceFAZolin sod 1 GM in D5W 55 ML IVPB SCH ×3 (01:02→16:36)
[2017-01-26 04:00] VITALS: BP 110/85
[2017-01-26] MEDS: PCA shift volume MISC SCH (07:14)
[2017-01-26] MEDS: D5 1/2NS 1,000 ML IV SCH ×2 (07:47→22:37)
[2017-01-26] MEDS: Docusate 100mg cap ORAL SCH ×2 (07:47→21:09)
[2017-01-26] MEDS: Heparin 5000 units/ml inj SUBQ SCH ×2 (07:53→21:08)
[2017-01-26 08:00] VITALS: BP 112/66
[2017-01-26] MEDS ORDERED: Rate Change PCA 1 Each MISC PRN (08:00)
[2017-01-26] MEDS ORDERED: PCA HYDROmorphone 1mg/ml 30 ML IV PRN (08:00)
[2017-01-26] MEDS ORDERED: Tubing IV Secondary IV ONE (09:40)
[2017-01-26] MEDS ORDERED: D5 1/2NS 1000ml IV ONE (09:40)
[2017-01-26 12:00] VITALS: BP 117/75
[2017-01-26] MEDS ORDERED: Norco 10mg/325mg tab ORAL PRN (14:30)
[2017-01-26] MEDS ORDERED: Norco 5mg/325mg tab ORAL PRN (14:30)
[2017-01-26 16:00] VITALS: BP 128/77
--- NOTE | 2017-01-26 18:24 | General Progress Note ---
Assessment/Plan Problem List: (1) Hidradenitis suppurativa ICD Codes: L73.2 - Hidradenitis suppurativa SNOMED: [id number] (2) Abscess ICD Codes: L02.91 - Cutaneous abscess, unspecified SNOMED: [id number] Assessment/Plan s/p excision of left buttock mass on 01/24/17 - [facility] plastic surgery rec's - Check CXR, duplex LE r/o DVT/PE prior to surgery - cont IV abx - F/u cultures - encourage mobilization/ambulation - encourage incentive spirometry to optimize pulmonary hygiene - DVT/GI prophylaxis as appropriate - pain control, supportive care, bowel regimen FULL CODE A total of 32 min of extra time was spent [id number] in addition to normal encounter time. D/w pt, RN, surgery regarding mgmt and disposition Subjective Date patient seen: January 26, 2017 Time patient seen: 18:22 ROS Limited/Unobtainable: No Allergies: Coded Allergies: No Known Allergies (Unverified , 01/23/17) Subjective No acute events overnight events, c/o pleuritic chest pain or dyspnea, no n/v, postop pain well controlled Objective Last 24 Hour Vital Signs Date Time Temp Pulse Resp B/P Pulse Ox O2 Delivery O2 Flow Rate FiO2 01/26/17 16:00 18 01/26/17 16:00 97.5 62 20 128/77 95 Room Air 01/26/17 14:36 97.5 01/26/17 12:00 18 01/26/17 12:00 97.5 77 20 117/75 98 Room Air 01/26/17 08:00 18 01/26/17 08:00 97.7 59 20 112/66 98 Room Air 01/26/17 04:00 18 01/26/17 04:00 98.1 68 18 110/85 96 Room Air 01/26/17 00:21 97.5 60 18 103/87 98 Room Air 01/26/17 00:00 18 01/25/17 20:00 97.2 61 19 106/58 98 Room Air 01/25/17 20:00 18 Intake and Output 01/25/17 01/26/17 19:00 07:00 Intake Total 1260 ml 842.5 ml Balance 1260 ml 842.5 ml Intake Oral 400 ml IV Total 860 ml 842.5 ml # Voids 2 Height (Feet): 5 Height (Inches): 9.00 Weight (Pounds): 139 Objective General: alert, cooperative, no distress, appears stated age Head: normocephalic, without obvious abnormality, atraumatic Eyes: conjunctivae/corneas clear. PERRL, EOM's intact Throat: lips, mucosa, and tongue normal. MMM Neck: supple, symmetrical, trachea midline, and no JVD Lungs: clear to auscultation bilaterally Heart: regular rate and rhythm, S1, S2 normal, no murmur, click, rub or gallop Abdomen: soft, non-tender, non-distended, bowel sounds normal; no masses or organomegaly Extremities: extremities normal, atraumatic, no cyanosis or edema Pulses: 2+ and symmetric Skin: skin color, texture, turgor normal; no rashes or lesions Neurologic: grossly normal, no focal deficits ASHWIN TORRES January 26, 2017 18:24
[2017-01-26] MEDS ORDERED: PCA shift volume MISC SCH (19:00)
[2017-01-26 20:00] VITALS: BP 126/85
[2017-01-26] MEDS: Cefepime HCl 1 GM in D5W 55 ML IVPB SCH (21:10)
[2017-01-27] VITALS (16 sets, daily range): BP systolic 92–133; BP diastolic 51–86
[2017-01-27] MEDS ORDERED: Lidocaine 2% 20mg/ml/Epi 0.005mg/ml 20ml vial ONE (06:40)
[2017-01-27] MEDS ORDERED: Bacitracin 50000 Units Vial ONE (06:40)
--- NOTE | 2017-01-27 06:48 | Pre-Procedure Note/Attestation ---
Pre-Procedure Note/Attestation Complete Prior to Procedure Planned Procedure: left Procedure Narrative: Closure of left buttock and vulvar wounds Indications for Procedure Pre-Operative Diagnosis: Left buttock and vulvar wounds Attestation I attest that I discussed the nature of the procedure; its benefits; risks and complications; and alternatives (and the risks and benefits of such alternatives ), prior to the procedure, with the patient (or the patient's legal arborist representative). I attest that, if there was a reasonable possibility of needing a blood transfusion, the patient (or the patient's legal arborist representative) was given the [facility] standardized written summary, pursuant to the Bernard Fredis Blood Safety Act ([place] Health and Safety Code # 1645, as amended). I attest that I re-evaluated the patient just prior to the surgery and that there has been no change in the patient's H&P, except as documented below: MACY CHO January 27, 2017 06:48
--- NOTE | 2017-01-27 06:49 | Operative Note - PDOC ---
Operative Note Operative Note Pre-op Diagnosis: Left buttock and vulvar wounds Procedure: Closure of left buttock and vulvar wounds Post-op Diagnosis: same as pre-op Surgeon: Minnie Animal Handler: Bethel Anesthesia: general Specimen: yes Complications: none Condition: stable Estimated Blood Loss: minimal Drains: HAI Implant(s) used?: No MACY CHO January 27, 2017 06:49
[2017-01-27] MEDS ORDERED: Norco 5mg/325mg tab ORAL PRN (07:00)
[2017-01-27] MEDS ORDERED: Midazolam 2mg/2ml Inj ONE (07:00)
[2017-01-27] MEDS ORDERED: Norco 10mg/325mg tab ORAL PRN (07:00)
[2017-01-27] MEDS ORDERED: Ketorolac 30mg Inj ONE (07:00)
[2017-01-27] MEDS ORDERED: Nimbex 2mg/ml Inj 10ML IVP ONE (07:00)
[2017-01-27] MEDS ORDERED: Propofol 10mg/ml 20ml IV ONE (07:00)
[2017-01-27] MEDS ORDERED: fentaNYL 100 mcg/2 mL IV ONE (07:00)
[2017-01-27] MEDS ORDERED: LR 1000ml ONE (07:00)
[2017-01-27] MEDS ORDERED: Morphine Sulfate 10mg/ml Inj ONE (07:00)
[2017-01-27] MEDS ORDERED: Rate Change PCA 1 Each MISC PRN (07:00)
[2017-01-27] MEDS ORDERED: Sterile Water Irrig 1000ml IRRIG ONE (07:00)
[2017-01-27] MEDS ORDERED: Neostigmine 1mg/ml 10ml Inj ONE (07:00)
[2017-01-27] MEDS ORDERED: Succinylcholine 20mg/ml 10ml vial ONE (07:00)
[2017-01-27] MEDS ORDERED: NS Irrig 1000ml ONE (07:00)
[2017-01-27] MEDS ORDERED: PCA shift volume MISC SCH (07:00)
[2017-01-27] MEDS ORDERED: LR 1000ml 1,000 ML IVLG SCH (07:54)
--- NOTE | 2017-01-27 07:54 | Anethesia Preoperative Eval ---
Anesthesia Pre-op PMH/ROS General Date of Evaluation: January 27, 2017 Time of Evaluation: 06:54 Anesthesiologist: Kelley ASA Score: ASA 2 Mallampati Score Class I : Soft palate, uvula, fauces, pillars visible Class II: Soft palate, uvula, fauces visible Class III: Soft palate, base of uvula visible Class IV: Only hard plate visible Mallampati Classification: Class II Surgeon: Minnie Diagnosis: Recurrent HS Surgical Procedure: Debridement and closure of L buttock wound Anesthesia History: none Family History: no anesthesia problems Allergies: Coded Allergies: No Known Allergies (Unverified , 01/23/17) Medications: see eMAR Past Medical History Cardiovascular: Denies: CAD, HTN, TN, arrhythmia, other, valve dz Pulmonary: Denies: COPD, JOHN, asthma, other Gastrointestinal/Genitourinary: Reports: GERD, Denies: CRI, ESRD, other Neurologic/Psychiatric: Denies: CVA, TIA, dementia, depression/anxiety, other Endocrine: Denies: DM, hypothyroidism, other, steroids HEENT: Denies: [place] (L), [place] (R), cataract (L), cataract (R), glaucoma, other Hematology/Immune: Denies: DVT, anemia, bleeding disorder, other Musculoskeletal/Integumentary: Reports: other - Recurrent HS, Denies: DDD, DJD, OA, RA, edema PMH Narrative: as above PSxH Narrative: see chart Anesthesia Pre-op Phys. Exam Physician Exam Last Vital Signs Date Time Temp Pulse Resp B/P Pulse Ox O2 Delivery O2 Flow Rate FiO2 01/27/17 04:00 97.7 67 19 110/70 98 Room Air 01/24/17 13:15 2.0 Constitutional: NAD Neurologic: CN 2-12 intact Cardiovascular: RRR, no M/R/G Respiratory: CTA Gastrointestinal: S/NT/ND Airway Exam Mallampati Score: Class II MO: full Neck: flexible ROM: full Teeth: intact Dentures: no lower, no upper Anesthesia Pre-op A/P Labs see chart Risk Assessment & Plan Assessment: ASA 2 Plan: GA with ETT prone position Status Change Before Surgery: No Pre-Antibiotics Drug: Ancef 1gr. Given Within 1 Hr of Incision: Yes Time Given: 07:20 MARIA ALEJANDRE M.D. January 27, 2017 07:54
[2017-01-27] MEDS ORDERED: Meperidine 25mg/0.5ml Inj IV PRN (08:00)
[2017-01-27] MEDS ORDERED: Hydromorphone 0.5mg/0.5ml inj IVP PRN (08:00)
[2017-01-27] MEDS ORDERED: Metoclopramide 10mg/2ml Inj IVP PRN (08:00)
[2017-01-27] MEDS ORDERED: Ketorolac 30mg Inj IV PRN (08:00)
[2017-01-27] MEDS ORDERED: Midazolam 2mg/2ml Inj IVP PRN (08:00)
[2017-01-27] MEDS: Cefepime HCl 1 GM in D5W 55 ML IVPB SCH (08:20)
[2017-01-27] MEDS: Docusate 100mg cap ORAL SCH ×2 (08:21→20:53)
[2017-01-27] MEDS: Heparin 5000 units/ml inj SUBQ SCH (08:21)
[2017-01-27] MEDS: fentaNYL 100 mcg/2 mL IV PRN ×2 (09:03→09:17)
--- NOTE | 2017-01-27 10:09 | Immediate Post-Op Evaluation ---
Immediate Post-Op Evalulation Immediate Post-Op Evalulation Procedure: Debridement and closure of L buttock wound Date of Evaluation: January 27, 2017 Time of Evaluation: 08:50 IV Fluids: 800 Blood Products: none Estimated Blood Loss: min Urinary Output: none Blood Pressure Systolic: 124 Blood Pressure Diastolic: 72 Pulse Rate: 68 Respiratory Rate: 22 O2 Sat by Pulse Oximetry: 98 Temperature (Fahrenheit): 98.2 Pain Score (1-10): 2 Nausea: No Vomiting: No Complications none Patient Status: reacts, patent, extubated, none Hydration Status: adequate MARIA ALEJANDRE M.D. January 27, 2017 10:09
--- NOTE | 2017-01-27 11:39 | Operative Note - Dictated ---
DATE: 01/27/2017 PREOPERATIVE DIAGNOSES: Open left buttock wound and open left inferior vulvar wound. POSTOPERATIVE DIAGNOSES: Open left buttock wound and open left inferior vulvar wounds. PROCEDURES: 1. Preparation of left vulvar wound for wound closure. 2. Complex closure of left vulvar wound. 3. Preparation of left buttock wound for flap closure. 4. Readvancement of medial and lateral fasciocutaneous flaps for closure of the left buttock wound. SURGEON: Bety Hartman M.D. ANESTHESIA: General. POSITION: Prone. EBL: Minimal. DRAINS: Included a size 10 HAI in the left buttock wound. INDICATIONS FOR SURGERY: This is a 31-year-old female, who is now three days postoperative from a radical excision of left buttock infected tissue as well as a debridement of left perivulvar tissue, who has been on IV antibiotics and has been doing well with dressing changes. The patient was noted to have gram-negative rods from the infected tissue on the left buttock and antibiotics were tailored to that. At the time of the initial operation, flaps were elevated for eventual staged readvancement and closure at the second stage which is today. She understands the risks and benefits of surgery and agrees to proceed. DETAILS OF THE OPERATION: The patient was brought to the operating room and after induction of anesthesia, was placed in the prone position on the operating table. Her lower back, buttocks and perineal regions were prepped and draped in a sterile and usual fashion. We first began by debriding the left inferior vulvar wound with a #15 blade down to healthy punctate bleeding. The wound was then copiously irrigated and after this was done, the wound was ready and prepared to undergo complex closure which was performed by placing 0 and 2-0 Vicryl sutures to reapproximate the skin edges and multiple interrupted Prolene sutures were used to close the skin to complete the complex closure. We then turned our attention to the left buttock wound, which measured 8 x 6 cm. The wound bed was debrided of some of the nonviable surface tissue and the wound was copiously irrigated with pulse lavage and hemostasis was achieved. The flaps were then previously elevated had to be readvanced and further relaxing incisions had to be done on the flaps to allow for advancement and closure of the wound without tension. Once the advancement was completed on both sides, the medial buttock flap again which was based off of perforators of the inferior gluteal artery and the lateral fasciocutaneous flap based off of perforators of the pudendal artery were then readvanced and brought the opposition following again relaxing incisions to completely mobilize the flaps. These two flaps were then brought together over HAI drain using 0 and 2-0 Vicryl sutures and multiple interrupted 2-0 Prolene vertical mattress sutures were used to close the skin. The same way the skin of the left vulvar wound was closed. Dermabond was then applied to both skin incisions and with Tegaderm being applied to the wound. Dressings were then placed on the patient's wound. The patient tolerated the procedure well. There was no complications. This completed the procedure which again was preparation of both left vulvar and left buttock wound for flap closure with complex closure of the left buttock wound and flap advancement x2 for closure of left buttock wound. Bety Hartman M.D. DR: Naomie JOB#: [id number] CC: BOBBY
[2017-01-27] MEDS: D5 1/2NS 1,000 ML IV SCH (12:12)
[2017-01-27] MEDS ORDERED: Morphine Sulfate 2mg/ml Inj IVP PRN ×2 (13:30)
[2017-01-27] MEDS ORDERED: Morphine Sulfate 4mg/ml Inj IVP PRN (13:30)
--- NOTE | 2017-01-27 14:25 | Diagnostic Imaging Report ---
Indication: Chest pain Technique: AP and lateral views of the chest. Findings: Comparison: 01/24/2017 PICC has been placed via left upper extremity, tip in region of superior vena cava. The bones and extra pulmonary soft tissues, cardiomediastinal silhouette, pulmonary vasculature and parenchyma, and pleural surfaces remain otherwise unremarkable. IMPRESSION: PICC placement, in good position. Otherwise negative AP and lateral chest radiographs , unchanged
--- NOTE | 2017-01-27 16:44 | Infectious Diseases Prog Note ---
Assessment/Plan Assessment/Plan Full consult dictated: A) 1) e.coli left buttock wound infection/abscess 2) hidradenitis suppurativa 3) s/p debridement and closure 4) allergies - negative P) 1) rocephin 2) watch labs 3) continue treatment per Dr. Wilkes 4) wound care per Dr. Hartman 5) orders entered and noted 6) thank you Subjective Allergies: Coded Allergies: No Known Allergies (Unverified , 01/23/17) Objective Vital Signs Last 24 Hour Vital Signs Date Time Temp Pulse Resp B/P Pulse Ox O2 Delivery O2 Flow Rate FiO2 01/27/17 12:00 97.0 71 20 133/80 99 Room Air 01/27/17 11:00 97.7 71 18 133/80 99 Room Air 01/27/17 10:29 97.0 51 18 92/51 98 Room Air 01/27/17 10:09 68 22 98 01/27/17 09:45 98.2 62 18 111/63 98 Room Air 01/27/17 09:41 98.1 01/27/17 09:33 97.6 01/27/17 09:30 58 16 115/65 98 Room Air 01/27/17 09:20 55 17 100/60 98 Room Air 01/27/17 09:13 60 16 112/64 98 Room Air 01/27/17 09:10 59 15 108/69 98 Room Air 01/27/17 09:00 57 18 110/62 98 Room Air 01/27/17 08:50 61 15 125/65 98 Room Air 01/27/17 08:45 75 14 129/78 100 Simple Mask 01/27/17 08:40 98.5 66 20 128/86 100 Simple Mask 01/27/17 04:00 97.7 67 19 110/70 98 Room Air 01/27/17 04:00 18 01/27/17 00:22 98.2 57 18 114/64 98 Room Air 01/27/17 00:00 18 01/26/17 20:00 18 01/26/17 20:00 98.1 59 19 126/85 97 Room Air Height (Feet): 5 Height (Inches): 9.00 Weight (Pounds): 139 Current Medications Medications (Trade) Dose Ordered Sig/Keith Route PRN Reason Start Time Stop Time Status Last Admin Dose Admin Acetaminophen (Tylenol) 650 mg Q4H PRN ORAL T>100.5 01/27/17 13:45 02/26/17 13:44 Bisacodyl (Dulcolax) 10 mg HSPRN PRN RECTAL Constipation THIRD LINE AGENT 01/23/17 15:15 02/22/17 15:14 Cefepime HCl/ Dextrose (Maxipime/D5W) 55 ml @ 110 mls/hr EVERY 12 HOURS IVPB 01/26/17 21:00 02/02/17 20:59 01/26/17 21:10 Dextrose/Sodium Chloride (D5 0.45% NS) 1,000 ml @ 75 mls/hr [id number] IV 01/23/17 16:00 02/22/17 15:59 01/27/17 12:12 Diphenhydramine HCl (Benadryl) 12.5 mg Q6H PRN IVP Itching/Pruritis 01/24/17 10:45 02/23/17 10:44 Diphenhydramine HCl (Benadryl) 25 mg Q6H PRN ORAL Itching/Pruritis 01/23/17 15:15 02/22/17 15:14 Docusate Sodium (Colace) 100 mg EVERY 12 HOURS ORAL 01/23/17 21:00 02/22/17 20:59 01/26/17 21:09 Heparin Sodium (Porcine) (Heparin 5000 units/ml) 5,000 units EVERY 12 HOURS SUBQ 01/28/17 09:00 02/27/17 08:59 Lactobacillus Acidophilus (Culturelle) 1 tab TWICE A DAY ORAL 01/27/17 21:00 02/26/17 20:59 Lorazepam (Ativan) 1 mg Q6H PRN ORAL For Anxiety 01/23/17 19:45 01/30/17 19:44 Magnesium Hydroxide (Mom) 30 ml HSPRN PRN ORAL Constipation SECOND LINE AGENT 01/23/17 15:15 02/22/17 15:14 Morphine Sulfate (Morphine Sulfate) 1 mg Q4H PRN IVP Mild Pain (Pain Scale 1-3) 01/27/17 13:30 02/03/17 13:29 Morphine Sulfate (Morphine Sulfate) 2 mg Q4H PRN IVP Moderate Pain (Pain Scale 4-6) 01/27/17 13:30 02/03/17 13:29 Morphine Sulfate (Morphine Sulfate) 4 mg Q4H PRN IVP Severe Pain (Pain Scale 7-10) 01/27/17 13:30 02/03/17 13:29 Naloxone HCl 0.1 mg 0.1 mg PRN IV PER PROTOCOL 01/26/17 07:45 01/28/17 07:44 Ondansetron HCl (Zofran) 4 mg Q6H PRN IVP Nausea & Vomiting 01/27/17 13:30 02/26/17 13:29 Polyethylene Glycol (Miralax) 17 gm HSPRN PRN ORAL Constipation FIRST LINE AGENT 01/23/17 15:15 02/22/17 15:14 Zolpidem Tartrate (Ambien) 5 mg HSPRN PRN ORAL Insomnia 01/27/17 21:00 02/26/17 20:59 YEE VERGARA January 27, 2017 16:44
--- NOTE | 2017-01-27 16:55 | General Progress Note ---
Assessment/Plan Problem List: (1) Hidradenitis suppurativa ICD Codes: L73.2 - Hidradenitis suppurativa SNOMED: 17108778 (2) Abscess ICD Codes: L02.91 - Cutaneous abscess, unspecified SNOMED: 882492879 Assessment/Plan s/p excision of left buttock mass on 01/24/17 - [facility] plastic surgery rec's, s/p surgery earlier this morning - neg CXR, neg duplex LE - cont IV abx - F/u cultures - encourage mobilization/ambulation - encourage incentive spirometry to optimize pulmonary hygiene - DVT/GI prophylaxis as appropriate - pain control, supportive care, bowel regimen FULL CODE A total of 32 min of extra time was spent [id number] in addition to normal encounter time. D/w pt, RN, surgery regarding mgmt and disposition Subjective Date patient seen: January 27, 2017 Time patient seen: 16:53 ROS Limited/Unobtainable: No Allergies: Coded Allergies: No Known Allergies (Unverified , 01/23/17) Subjective s/p surgery earlier this am, no further c/o pleuritic chest pain or dyspnea, duplex and cxr neg, no n/v, postop pain well controlled Objective Last 24 Hour Vital Signs Date Time Temp Pulse Resp B/P Pulse Ox O2 Delivery O2 Flow Rate FiO2 01/27/17 12:00 97.0 71 20 133/80 99 Room Air 01/27/17 11:00 97.7 71 18 133/80 99 Room Air 01/27/17 10:29 97.0 51 18 92/51 98 Room Air 01/27/17 10:09 68 22 98 01/27/17 09:45 98.2 62 18 111/63 98 Room Air 01/27/17 09:41 98.1 01/27/17 09:33 97.6 01/27/17 09:30 58 16 115/65 98 Room Air 01/27/17 09:20 55 17 100/60 98 Room Air 01/27/17 09:13 60 16 112/64 98 Room Air 01/27/17 09:10 59 15 108/69 98 Room Air 01/27/17 09:00 57 18 110/62 98 Room Air 01/27/17 08:50 61 15 125/65 98 Room Air 01/27/17 08:45 75 14 129/78 100 Simple Mask 01/27/17 08:40 98.5 66 20 128/86 100 Simple Mask 01/27/17 04:00 97.7 67 19 110/70 98 Room Air 01/27/17 04:00 18 01/27/17 00:22 98.2 57 18 114/64 98 Room Air 01/27/17 00:00 18 01/26/17 20:00 18 01/26/17 20:00 98.1 59 19 126/85 97 Room Air Intake and Output 01/26/17 01/27/17 19:00 07:00 Intake Total 1325 ml 880 ml Balance 1325 ml 880 ml Intake Oral 540 ml IV Total 785 ml 880 ml # Voids 4 2 Height (Feet): 5 Height (Inches): 9.00 Weight (Pounds): 139 Objective General: alert, cooperative, no distress, appears stated age Head: normocephalic, without obvious abnormality, atraumatic Eyes: conjunctivae/corneas clear. PERRL, EOM's intact Throat: lips, mucosa, and tongue normal. MMM Neck: supple, symmetrical, trachea midline, and no JVD Lungs: clear to auscultation bilaterally Heart: regular rate and rhythm, S1, S2 normal, no murmur, click, rub or gallop Abdomen: soft, non-tender, non-distended, bowel sounds normal; no masses or organomegaly Extremities: extremities normal, atraumatic, no cyanosis or edema Pulses: 2+ and symmetric Skin: skin color, texture, turgor normal; no rashes or lesions Neurologic: grossly normal, no focal deficits ASHWIN TORRES January 27, 2017 16:55
[2017-01-27] MEDS ORDERED: D5 1/2NS 1000ml IV ONE (18:27)
[2017-01-27] MEDS: Lactobacillus-GG tablet ORAL SCH (20:53)
[2017-01-27] MEDS ORDERED: cefTRIAXone 1 GM in D5W 55 ML IVPB SCH (21:00)
[2017-01-27] MEDS ORDERED: Zolpidem 5mg tab ORAL PRN (21:00)
[2017-01-28] VITALS: BP 110/56
--- NOTE | 2017-01-28 00:49 | Consultation ---
DATE OF CONSULTATION: 01/27/2017 INFECTIOUS DISEASE CONSULTATION CONSULTING PHYSICIAN: Cristian Gross M.D. ATTENDING PHYSICIAN: Shasta Wilkes M.D. REASON FOR CONSULTATION: E. coli left buttocks infected wound and abscess. The patient's chief complaint coming in is hidradenitis suppurativa and left buttocks abscess. HISTORY OF PRESENT ILLNESS: This is a very pleasant 31-year-old female with history of hidradenitis suppurativa, who was being treated for left buttock infection with oral antibiotics. The patient's infection was refractory with oral antibiotics and the patient is admitted to [facility] for IV antibiotics and further debridement of the abscess. The patient was seen by plastic surgery, Dr. Hartman and the patient is status post debridement and closure of wounds. Wound culture grew out E. coli of the left buttock. Sensitivities were noted. Infectious Disease consultation was requested for antibiotic management of this patient. Case was discussed with Dr. Wilkes and Dr. Araujo. MAR was noted. Orders were noted. Notes were reviewed. Case was also discussed with the RN and the patient. The patient was on cefepime, will transition antibiotics to Rocephin. The patient is status post debridement and closure of the left buttock and left vulvar wound. REVIEW OF SYSTEMS: Constitutional: She has no fever or chills. No mention of weight loss. Head and neck: No thrush or dysphagia. Pulmonary: No congestion or shortness of breath. Cardiac: No chest pain or palpitations. Gastrointestinal: No nausea, vomiting, or diarrhea. PAST MEDICAL HISTORY: The patient's past medical history includes the following. She has a history of hidradenitis suppurativa. There is no history of diabetes or hypertension. No other significant past medical history. ALLERGIES: She has no known drug allergies. FAMILY HISTORY: Noncontributory. SOCIAL HISTORY: Negative for smoking, alcohol, or drug use. MEDICATIONS: Upon reviewing the MAR, she is on following medications: She is on heparin and Lactobacillus. She is on Ambien, Rocephin, Tylenol, morphine, and Zofran. She is on Narcan, Benadryl, Colace, Ativan, Dulcolax, MOM, and MiraLax. Please see medications in the medical order. PHYSICAL EXAMINATION: VITAL SIGNS: The patient's temperature is 97.0, pulse rate 87, respiratory rate 20, blood pressure 132/80, and saturation 99%. GENERAL: Alert, responsive, and oriented x3, in no acute distress. HEAD AND NECK: Oral exam, no thrush. Eye exam, no icterus. Neck is supple. No adenopathy. Normocephalic. No facial droop. HEART: Regular. No obvious gallop or murmur. ABDOMEN: Soft. Positive bowel sounds. Nontender. LUNGS: Clear bilaterally. No rhonchi or rales. SKIN: Wounds are covered at this time. No other rash noted. MUSCULOSKELETAL: No evidence of effusions, extremities without cellulitis or cyanosis. NEUROLOGIC: Intact. GENITOURINARY: No Alexander. Line sites, she has a PICC line. No CVA tenderness. LABORATORY AND DIAGNOSTIC DATA: Laboratory data as follows: White count 4.6, hemoglobin 15.1. The patient's creatinine is 0.7. Urinalysis was 2 to 4 white blood cells only. Wound culture, the patient from the left buttock had E. coli, which is sensitive to cephalosporins including Rocephin, sensitive to Cipro, but is resistant to cefazolin, but it was also sensitive to Bactrim. Imaging studies: Chest x-ray showed no evidence of pneumonia. ASSESSMENT AND PLAN: 1. The patient has a left buttock Escherichia coli infected wound and abscess. The patient is status post debridement and wound closure. The patient is also status post closure of the left vulvar wound. At this time, her wound culture with E. coli, sensitive to cephalosporins and Bactrim and fluoroquinolones. Based on sensitivities, the patient will be placed on Rocephin 1 g q. 24 hours and I will discontinue the cefepime. Continue wound care per Plastic Surgery, Dr. Hartman. 2. Hidradenitis suppurativa. The patient is status post debridement and closure of wounds of the left buttock and left vulvar area. 3. She has no other significant past medical history. 4. Allergies are negative. 5. continue treatment per Dr. Wilkes and Dr. Araujo. 6. MAR was noted. 7. Notes were reviewed. 8. Case was discussed with RN. 9. Case was discussed with the patient. Cristian Gross M.D. DR: FRANCO JOB#: [id number] CC: BOBBY
[2017-01-28] MEDS: D5 1/2NS 1,000 ML IV SCH ×2 (03:15→16:00)
[2017-01-28 08:41] VITALS: BP 110/69
[2017-01-28] MEDS: Heparin 5000 units/ml inj SUBQ SCH ×2 (09:00→20:46)
--- NOTE | 2017-01-28 09:59 | General Progress Note ---
Progress Note Progress Note Pt seen and examined. POD# 1 from closure of buttock and vulvar wounds. Doing well and pain is being controlled. Plan for dc in Am on pain meds and abx. MD TAMMIE Galvez AMIR January 28, 2017 09:59
[2017-01-28] MEDS: Docusate 100mg cap ORAL SCH ×2 (10:03→20:42)
[2017-01-28] MEDS: Lactobacillus-GG tablet ORAL SCH ×2 (10:03→19:16)
[2017-01-28 12:21] VITALS: BP 110/59
--- NOTE | 2017-01-28 15:26 | General Progress Note ---
JOSUE OSCAR NJasonPJason 01/28/17 1526: Assessment/Plan Status: doing well, stable Assessment/Plan Problem List: (1) Hidradenitis suppurativa ICD Codes: L73.2 - Hidradenitis suppurativa SNOMED: 86007826 (2) Abscess ICD Codes: L02.91 - Cutaneous abscess, unspecified SNOMED: 130773993 Assessment/Plan s/p excision of left buttock mass on 01/24/17, closure of Buttock, Vulvar wounds on 01/27/17 - [facility] plastic surgery rec's - neg CXR, neg duplex LE - cont IV abx - Wound culture: + e-coli, sensitive to Bactrim/Keflex. Okay'd by Dr. Lilly - encourage mobilization/ambulation - encourage incentive spirometry to optimize pulmonary hygiene - DVT/GI prophylaxis as appropriate - pain control, supportive care, bowel regimen If stable, can discharge tomorrow with Antibiotics Bactrim DS x 14 days, Keflex x 10 days and Pain Medicine Percocet Subjective Date patient seen: January 28, 2017 Time patient seen: 15:36 Constitutional: Denies: chills, diaphoresis, fever HEENT: Denies: blurred vision, eye pain, mouth swelling, tearing Cardiovascular: Denies: chest pain, edema, irregular heart rate Respiratory: Denies: cough, orthopnea, shortness of breath Gastrointestinal/Abdominal: Denies: abdomen distended, abdominal pain Genitourinary: Denies: burning, discharge, frequency Neurologic/Psychiatric: Denies: anxiety, depressed, emotional problems Endocrine: Denies: excessive sweating, flushing, intolerance to cold Hematologic/Lymphatic: Denies: anemia, easy bleeding, easy bruising Allergies: Coded Allergies: No Known Allergies (Unverified , 01/23/17) 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 Having incisional pain when moving. Tolerating PO food/fluid. Objective Last 24 Hour Vital Signs Date Time Temp Pulse Resp B/P Pulse Ox O2 Delivery O2 Flow Rate FiO2 01/28/17 12:21 98.2 63 19 110/59 99 Room Air 01/28/17 08:41 98.2 64 21 110/69 98 Room Air 01/28/17 00:00 97.2 58 16 110/56 98 Room Air 01/27/17 20:30 98.1 56 18 116/63 99 Room Air 01/27/17 16:00 98.0 74 20 118/69 99 Room Air Intake and Output 01/27/17 01/28/17 19:00 07:00 Intake Total 1475 ml 1065 ml Output Total 18 ml 20 ml Balance 1457 ml 1045 ml Intake Oral 700 ml 240 ml IV Total 775 ml 825 ml Drainage Total 18 ml 20 ml # Voids 2 3 Height (Feet): 5 Height (Inches): 9.00 Weight (Pounds): 139 General Appearance: no apparent distress, alert, lethargic EENT: PERRL/EOMI, normal ENT inspection Neck: non-tender, normal alignment, supple Cardiovascular: normal peripheral pulses, normal rate, regular rhythm Respiratory/Chest: chest wall non-tender, lungs clear, normal breath sounds Abdomen: normal bowel sounds, non tender, soft Pelvis: normal external exam, other - HAI drain present, draining serosanguinous fluid Extremities: normal range of motion, non-tender, normal inspection, no calf tenderness Edema: no edema noted Arm (L), no edema noted Arm (R), no edema noted Leg (L), no edema noted Leg (R), no edema noted Pedal (L), no edema noted Pedal (R), no edema noted Generalized Neurologic: alert, oriented x 3 Skin: normal pigmentation, warm/dry Lymphatic: normal anterior cervical (L), normal anterior cervical (R), normal axillary (L), normal axillary (R), normal inguinal (L), normal inguinal (R), normal other, normal posterior cervical (L), normal posterior cervical (R), normal submandibular (L), normal submandibular (R), normal supraclavicular (L), normal supraclavicular (R) ASHWIN TORRES 01/30/17 1445: Assessment/Plan Assessment/Plan I saw and examined the patient, reviewed the case in detail, reviewed radiology and EKG if applicable, in addition reviewing the laboratory data and microbiology. I agree with the history, physical examination findings, assessment and plan of care as outlined above by the Nurse Practitioner with any additions or modifications noted. Subjective Allergies: Coded Allergies: No Known Allergies (Unverified , 01/23/17) JOSUE OSCAR Jayant January 28, 2017 15:26 ASHWIN TORRES January 30, 2017 14:45
[2017-01-28] MEDS ORDERED: CULTURELLE1 EACH ORAL (15:39)
--- NOTE | 2017-01-28 15:49 | Discharge Instructions ---
Discharge Instructions Discharge Instructions Follow up with: Dr. Hartman on Monday in Clinic Call MD/Return to Hospital if: you have fever > 101F, uncontrollable pain, pus , wound opening Resume Normal Activity?: No Activity: light activity, as tolerated For Surgical Patients Dressing Care: keep dry and clean Contact your physician for: bleeding, pain, tenderness, redness, swelling, yellowish discharge in the op. site For Congestive Heart Failure Reminder Report to your physician any weight gain of 5 pounds or more in one week. JOSUE OSCAR N.P. January 28, 2017 15:49
[2017-01-28 16:58] VITALS: BP 117/59
--- NOTE | 2017-01-28 17:21 | 48 Hour Post Anesthesia Eval ---
Post Anesthesia Evaluation Procedure: Debridement and closure of L buttock wound Date of Evaluation: January 28, 2017 Time of Evaluation: 15:20 Blood Pressure Systolic: 110 0: 59 Pulse Rate: 63 Respiratory Rate: 19 Temperature (Fahrenheit): 98.2 O2 Sat by Pulse Oximetry: 99 Airway: patent Nausea: No Vomiting: No Pain Intensity: 2 Hydration Status: adequate Cardiopulmonary Status: at baseline Mental Status/LOC: patient returned to baseline Post-Anesthesia Complications: 0 Follow-up care needed: N/A - further care as per primary team HUSSEIN MAGUIRE M.D. January 28, 2017 17:21
[2017-01-28] MEDS: Cephalexin 500mg cap ORAL SCH ×2 (18:00→20:42)
[2017-01-28 20:00] VITALS: BP 124/60
[2017-01-28] MEDS: Bactrim DS (160mg/800mg) tab ORAL SCH (20:42)
[2017-01-29] VITALS: BP 116/63
[2017-01-29 04:00] VITALS: BP 103/66
[2017-01-29 08:46] VITALS: BP 101/55
[2017-01-29] MEDS: Cephalexin 500mg cap ORAL SCH (09:13)
[2017-01-29] MEDS: Bactrim DS (160mg/800mg) tab ORAL SCH (09:13)
[2017-01-29] MEDS: Docusate 100mg cap ORAL SCH (09:13)
[2017-01-29] MEDS: Lactobacillus-GG tablet ORAL SCH (09:13)
[2017-01-29] MEDS: Heparin 5000 units/ml inj SUBQ SCH (09:22)
[2017-01-29] MEDS ORDERED: PERCOCET 5-3251 EACH ORAL (09:29)
[2017-01-29] MEDS ORDERED: CEPHALEXIN500 MG ORAL (09:32)
[2017-01-29] MEDS ORDERED: BACTRIM DS TAB1 EAC1 ORAL (09:32)
--- NOTE | 2017-01-29 23:35 | Discharge Summary ---
JOSUE OSCAR NLiya 01/29/17 2335: Discharge Summary Hospital Course Date of Admission January 23, 2017 at 12:40 Date of Discharge January 29, 2017 at 10:20 Admitting Diagnosis HIDRANITIS SUPPURATIVA LONNIE Oviedo is a 31 year old female who was admitted on January 23, 2017 at 12:40 for Hidrantitis Suppurativa, specifically abscess of left groin/buttock. Chary Hartman Procedures 01/24/17 excision and debridement of left groin/buttock abscess with flap elevation 01/27/17 Debridement and closure of Left Buttock Hospital Course Patient was admitted to [place] for IV antibiotics and further debridement of left buttock infection. Patient was seen by plastic surgery, Dr. Hartman. On 01/24/17, she went underwent debridement of left buttock/vulvar area with flap elevation and on 01/27/17, she received further debridement operatively with closure of buttock flab. Wound culture of abscess was positive for E.coli. ID was consulted and patient was given IV antibiotics, cefepime, then ceftriaxone. She is discharged on Bactrim and Keflex PO and instructed to follow up with Dr. Hartman in clinic this week. She is instructed to seek emergency care if she has fever > 101, chills, pus, or other new problems arise. Discharge Discharge Disposition Patient was discharged to Home () Discharge Diagnoses: (1) Abscess (2) Hidradenitis suppurativa Discharge Instructions Discharge Instructions Follow up with: Dr. Hartman on Monday in Clinic Call MD/Return to Hospital if: you have fever > 101F, uncontrollable pain, pus , wound opening Activity: light activity, as tolerated For Surgical Patients Dressing Care: keep dry and clean Contact your physician for: bleeding, pain, tenderness, redness, swelling, yellowish discharge in the op. site ASHWIN TORRES 01/30/17 5779: Discharge Summary Discharge Discharge Disposition I saw and examined the patient, reviewed the case in detail, reviewed radiology and EKG if applicable, in addition reviewing the laboratory data and microbiology. I agree with the history, physical examination findings, assessment and plan of care as outlined above by the Nurse Practitioner with any additions or modifications noted. Discharge Diagnoses: JOSUE OSCAR N.P. January 29, 2017 23:35 ASHWIN TORRES January 30, 2017 14:49
--- NOTE | 2017-01-30 21:24 | Diagnostic Imaging Report ---
APPROVED REPORT CPT Code: 34932 Present Symptoms Lower Extremity Pain: Comments: Hx hydradenitis suppurativa. Recent surgery to remove cyst from left buttock. BILATERAL: Imaging reveals a patent deep venous system bilaterally. There is no evidence of thrombus within the femoral, popliteal or tibial segments. The greater saphenous veins are also within normal limits. Doppler indicates normal spontaneous flow within these segments.
== END 2017-01-29 10:20 | disposition home or self-care (01) | DRG 574 ==
LOC: EMR 12:36 → 3E 12:40 → EDBEDREQ 13:34 → 3E 15:07
PROC: 02HV33Z Insertion of Infusion Device into Superior Vena Cava, Percutaneous Approach (ICD-10-PCS; principal; 2017-01-24 11:00)
PROC: 0JBB0ZZ Excision of Perineum Subcutaneous Tissue and Fascia, Open Approach (ICD-10-PCS; principal; 2017-01-24 11:00)
PROC: 0H88XZZ Division of Buttock Skin, External Approach (ICD-10-PCS; principal; 2017-01-24 11:00)
PROC: 0JB90ZZ Excision of Buttock Subcutaneous Tissue and Fascia, Open Approach (ICD-10-PCS; principal; 2017-01-24 11:00)
PROC: 0JQB0ZZ Repair Perineum Subcutaneous Tissue and Fascia, Open Approach (ICD-10-PCS; 2017-01-27)
PROC: 0JX90ZZ Transfer Buttock Subcutaneous Tissue and Fascia, Open Approach (ICD-10-PCS; 2017-01-27)
DX: L02.31 Cutaneous abscess of buttock (principal); N76.4 Abscess of vulva; B96.20 Unspecified Escherichia coli [E. coli] as the cause of diseases classified elsewhere; L73.2 Hidradenitis suppurativa
CPT/HCPCS: 36415; 36569; 71010; 71020; 76937; 80048; 81001; 81025; 85025; 85610; 85730; 87070; 87075; 87181; 87205; 93005; 93970; 93971; 94003; 94150; J1815; J2250; J2405; J2710

== ENCOUNTER 2017-03-23 17:41 | Inpatient (IN) | payer OTHER ==
[~2017-03-23] VITALS: Ht 175.3 cm; Wt 61.2 kg
[~2017-03-23 17:41] MED LIST: BACTRIM DS TAB1 EAC1 ORAL; CEPHALEXIN500 MG ORAL; CULTURELLE1 EACH ORAL; NKM; PERCOCET 5-3251 EACH ORAL
[2017-03-23 17:59] VITALS: BP 126/82
--- NOTE | 2017-03-23 18:49 | Emergency Room Report ---
History of Present Illness General Chief Complaint: Skin Rash/Abscess Source: Patient, Medical Record Present Illness HPI 32 YO Female presents to the ED c/o pain, swelling, and erythema of the right axilla x 2 weeks. pt. previously had surgery to hidradenitis removal after multiple recurrences. Pt. denies Nausea ,vomiting, fevers, chills, rashes, or . denies night sweats , or significant changes in weight, denies pmhx. Denies CP, Palpitations, LOC, AMS, dizziness, Changes in Vision, Sensation, paresthesias, or a sudden severe headache. Allergies: Coded Allergies: No Known Allergies (Unverified , 01/23/17) Patient History Past Medical History: see triage record Past Surgical History: none Pertinent Family History: none Last Menstrual Period: 03/09/17 Now: No Immunizations: UTD Reviewed Nursing Documentation: PMH: Agreed, PSxH: Agreed Nursing Documentation-PMH Past Medical History: No History, Except For Hx Cardiac Problems: No - Hydradenitis Superitiva Hx Cancer: No Hx Gastrointestinal Problems: No Hx Neurological Problems: No Review of Systems All Other Systems: negative except mentioned in HPI Physical Exam Vital Signs Date Time Temp Pulse Resp B/P Pulse Ox O2 Delivery O2 Flow Rate FiO2 03/23/17 17:46 97.9 64 14 126/82 98 Room Air Sp02 EP Interpretation: reviewed, normal General Appearance: no apparent distress, alert, GCS 15, non-toxic Head: normocephalic, atraumatic Eyes: bilateral eye PERRL, bilateral eye normal inspection ENT: hearing grossly normal, normal pharynx, no angioedema, normal voice Neck: full range of motion, supple/symm/no masses Respiratory: lungs clear, normal breath sounds, speaking full sentences Cardiovascular #1: regular rate, rhythm, no edema Musculoskeletal: back normal, gait/station normal, normal range of motion Neurologic: alert, oriented x3, responsive, motor strength/tone normal, sensory intact, speech normal Psychiatric: judgement/insight normal, memory normal, mood/affect normal Skin: normal color, no rash, warm/dry, well hydrated, other - TTP swelling, and erythema of the right axilla Lymphatic: no adenopathy Medical Decision Making PA Attestation Dr. Mcgovern is my supervising Physician whom patient management has been discussed with. Diagnostic Impression: Primary Impression: Hidradenitis suppurativa Additional Impression: UTI (urinary tract infection) Qualified Codes: N30.00 - Acute cystitis without hematuria ER Course Pt. presents to the ED c/o pain, swelling, and erythema of the right axilla x 2 weeks. pt. previously had surgery to hidradenitis removal after multiple recurrences. Pt. denies Nausea ,vomiting, fevers, chills, rashes, or . denies night sweats , or significant changes in weight, denies pmhx. Ddx considered but are not limited to cellulitis, hydradenitis Suppurativa, fracture, d/L, gout, abscess Vital signs: are WNL, pt. is afebrile H&PE are most consistent with Vulval hydradenitis Suppurativa requiring direct admission for surgical or IV abx management. ORDERS: -Gen. preop labwork: CBC, CMP, PT/PTT: all unremarkable Type and Screen.- See blood bank results: ( O POSITIVE ) - Urine Hcg: Negative -UA : indicative with UTI due to presence of bacteria, and elevated WBC's and leuks -Blood Cultures: Pending ED INTERVENTIONS: -1 gram Ancef IV DISPOSITION: at this time pt. will be admitted to Dr. Wilkes for hydradenitis Suppurativa. Dr. Wilkes agreed to admit the pt. and to continue pt. care management. Labs Test 03/23/17 18:35 03/23/17 21:00 White Blood Count 4.9 K/UL (4.8-10.8) Red Blood Count 4.99 M/UL (4.20-5.40) Hemoglobin 16.0 G/DL (12.0-16.0) Hematocrit 47.6 % (37.0-47.0) Mean Corpuscular Volume 95 FL (80-99) Mean Corpuscular Hemoglobin 32.1 PG (27.0-31.0) Mean Corpuscular Hemoglobin Concent 33.7 G/DL (32.0-36.0) Red Cell Distribution Width 11.3 % (11.6-14.8) Platelet Count 296 K/UL (150-450) Mean Platelet Volume 6.7 FL (6.5-10.1) Neutrophils (%) (Auto) 43.3 % (45.0-75.0) Lymphocytes (%) (Auto) 49.1 % (20.0-45.0) Monocytes (%) (Auto) 3.9 % (1.0-10.0) Eosinophils (%) (Auto) 1.4 % (0.0-3.0) Basophils (%) (Auto) 2.4 % (0.0-2.0) Prothrombin Time 10.0 SEC (9.30-11.50) Prothromb Time International Ratio 1.0 (0.9-1.1) Activated Partial Thromboplast Time 29 SEC (23-33) Urine Color Yellow Urine Appearance Slightly cloudy Urine pH 6 (4.5-8.0) Urine Specific [place] 1.020 (1.005-1.035) Urine Protein 2+ (NEGATIVE) Urine Glucose (UA) Negative (NEGATIVE) Urine Ketones 1+ (NEGATIVE) Urine Occult Blood 1+ (NEGATIVE) Urine Nitrite Negative (NEGATIVE) Urine Bilirubin Negative (NEGATIVE) Urine Urobilinogen 1 MG/DL (0.0-1.0) Urine Leukocyte Esterase 2+ (NEGATIVE) Urine RBC 2-4 /HPF (0 - 2) Urine WBC 5-10 /HPF (0 - 2) Urine Squamous Epithelial Cells Many /LPF (NONE/OCC) Urine Bacteria Moderate /HPF (NONE) Urine HCG, Qualitative Negative Sodium Level 138 mEQ/L (135-145) Potassium Level 3.3 mEQ/L (3.4-4.9) Chloride Level 100 mEQ/L (98-107) Carbon Dioxide Level 26 mEQ/L (20-30) Anion Gap 12 (5-15) Blood Urea Nitrogen 12 mg/dL (7-23) Creatinine 0.9 mg/dL (0.5-0.9) Estimat Glomerular Filtration Rate > 60 mL/min (>60) Glucose Level 104 mg/dL (74-106) Calcium Level 9.7 mg/dL (8.6-10.2) Total Bilirubin 0.6 mg/dL (0.0-1.2) Aspartate Amino Transf (AST/SGOT) 18 U/L (5-40) Alanine Aminotransferase (ALT/SGPT) 14 U/L (3-33) Alkaline Phosphatase 53 U/L (35-104) Total Protein 8.5 g/dL (6.6-8.7) Albumin 4.7 g/dL (3.5-5.2) Globulin 3.8 g/dL Albumin/Globulin Ratio 1.2 (1.0-2.7) Last Vital Signs Date Time Temp Pulse Resp B/P Pulse Ox O2 Delivery O2 Flow Rate FiO2 03/23/17 17:59 97.9 14 126/82 98 Room Air 03/23/17 17:46 64 Disposition: ADMITTED INPATIENT Condition: Serious Referrals: MACY CHO (PCP) Dodie Trevino Mar 23, 2017 18:49
[2017-03-23 18:59] LABS: BASOPHILS % (AUTO) 2.4 % (0.0-2.0); EOSINOPHILS % (AUTO) 1.4 % (0.0-3.0); LYMPHOCYTES % (AUTO) 49.1 % (20.0-45.0); MEAN CORPUSCULAR HEMOGLOBIN 32.1 PG (27.0-31.0); MEAN CORPUSCULAR HGB CONC 33.7 G/DL (32.0-36.0); MEAN CORPUSCULAR VOLUME 95 FL (80-99); MEAN PLATELET VOLUME 6.7 FL (6.5-10.1); MONOCYTES % (AUTO) 3.9 % (1.0-10.0); NEUTROPHILS % (AUTO) 43.3 % (45.0-75.0); PLATELET COUNT 296 K/UL (150-450); RED BLOOD COUNT 4.99 M/UL (4.20-5.40); RED CELL DISTRIBUTION WIDTH 11.3 % (11.6-14.8); WHITE BLOOD COUNT 4.9 K/UL (4.8-10.8)
[2017-03-23] MEDS ORDERED: NKM (19:04)
[2017-03-23 19:11] LABS: APPEARANCE,URINE SLIGHTLY CLOUDY; KETONES,URINE 1+ (NEGATIVE); LEUKOCYTE ESTERASE ,URINE 2+ (NEGATIVE); NITRITE,URINE NEGATIVE (NEGATIVE); PH,URINE 6 (4.5-8.0); PROTEIN,URINE 2+ (NEGATIVE); UROBILINOGEN,URINE 1 MG/DL (0.0-1.0)
[2017-03-23 19:17] LABS: BACTERIA,URINE MODERATE /HPF; SQUAMOUS EPITHELIAL CELL,UR MANY /LPF (NONE/OCC)
[2017-03-23 19:22] LABS: ALANINE AMINOTRANSFERASE 14 U/L (3-33); ALBUMIN/GLOBULIN RATIO 1.2 (1.0-2.7); ASPARTATE AMINO TRANSFERASE 18 U/L (5-40); CALCIUM 9.7 mg/dL (8.6-10.2); CARBON DIOXIDE 26 mEQ/L (20-30); CREATININE 0.9 mg/dL (0.5-0.9); GLOMERULAR FILTRATION RATE > 60 mL/min (>60); HEMOLYSIS 8; TOTAL PROTEIN 8.5 g/dL (6.6-8.7)
[2017-03-23 19:23] LABS: ANION GAP 12 (5-15); CHLORIDE 100 mEQ/L (98-107); POTASSIUM 3.3 mEQ/L (3.4-4.9); REFLEX LACTIC ACID YES OR NO YES; SODIUM 138 mEQ/L (135-145)
[2017-03-23 21:30] VITALS: BP 109/78
[2017-03-23] MEDS ORDERED: ceFAZolin sod 1 GM in D5W 55 ML IVPB SCH (22:00)
[2017-03-23] MEDS ORDERED: Norco 5mg/325mg tab ORAL PRN (22:30)
[2017-03-23] MEDS ORDERED: DiphenhydrAMINE 50mg/ml Inj IVP PRN (22:30)
[2017-03-23] MEDS ORDERED: Morphine Sulfate 2mg/ml Inj IVP PRN (22:30)
[2017-03-23] MEDS ORDERED: Norco 10mg/325mg tab ORAL PRN (22:30)
[2017-03-23] MEDS ORDERED: Morphine Sulfate 4mg/ml Inj IVP PRN (22:30)
[2017-03-24] VITALS (13 sets, daily range): BP systolic 103–143; BP diastolic 51–67
[2017-03-24] MEDS: D5 1/2NS 1,000 ML IV SCH ×3 (01:08→13:49)
[2017-03-24] MEDS: cefTRIAXone 1 GM in D5W 55 ML IVPB SCH (06:18)
[2017-03-24 06:23] LABS: BASOPHILS % (AUTO) 1.4 % (0.0-2.0); EOSINOPHILS % (AUTO) 1.5 % (0.0-3.0); LYMPHOCYTES % (AUTO) 54.4 % (20.0-45.0); MEAN CORPUSCULAR HEMOGLOBIN 31.7 PG (27.0-31.0); MEAN CORPUSCULAR HGB CONC 33.6 G/DL (32.0-36.0); MEAN CORPUSCULAR VOLUME 94 FL (80-99); MEAN PLATELET VOLUME 6.7 FL (6.5-10.1); MONOCYTES % (AUTO) 6.9 % (1.0-10.0); NEUTROPHILS % (AUTO) 35.8 % (45.0-75.0); PLATELET COUNT 255 K/UL (150-450); RED BLOOD COUNT 4.13 M/UL (4.20-5.40); RED CELL DISTRIBUTION WIDTH 11.5 % (11.6-14.8); WHITE BLOOD COUNT 4.8 K/UL (4.8-10.8)
[2017-03-24 07:09] LABS: ANION GAP 10 (5-15); CALCIUM 8.8 mg/dL (8.6-10.2); CARBON DIOXIDE 24 mEQ/L (20-30); CHLORIDE 103 mEQ/L (98-107); CREATININE 0.7 mg/dL (0.5-0.9); GLOMERULAR FILTRATION RATE > 60 mL/min (>60); HEMOLYSIS 4; POTASSIUM 3.7 mEQ/L (3.4-4.9); SODIUM 137 mEQ/L (135-145)
--- NOTE | 2017-03-24 07:54 | History and Physical ---
History of Present Illness General Date patient seen: Mar 24, 2017 Time patient seen: 07:54 Reason for Hospitalization: Skin Rash/Abscess Present Illness HPI 32 y/o female with hx of recent hidradenitis surgery on her buttocks region, presents to the ED with c/o swelling/tenderness and redness in her R axilla region. Pt states it has been there for 2 months now, it has decreased in size but has not resolved with outpt therapy and still bothers her. No changes to her medical condition from her recent hospital stay. Still smokes occasionally. No fevers/chills Allergies: Coded Allergies: No Known Allergies (Unverified , 01/23/17) Medication History Scheduled Cephalexin* (Keflex*), 500 MG ORAL EVERY 6 HOURS, (Reported) Lactobacillus Rhamnosus Gg* (Culturelle*), 1 TAB ORAL TWICE A DAY No Known Medications* (NKM - No Known Medications*), 0 ., (Reported) No Known Medications* (NKM - No Known Medications*), 0 ., (Reported) Trimethoprim/Sulfamethoxazole 160/800* (Bactrim Ds Tablet*), 1 TAB ORAL Q12HR, ( Reported) Scheduled PRN Oxycodone/Acetaminophen 5-325* (Percocet 5-325 Mg Tablet*), 1 TAB ORAL Q4H PRN for For Pain, (Reported) Patient History History Provided By: Patient Healthcare decision maker Resuscitation status Full Code Advanced Directive on File Past Medical/Surgical History Past Medical/Surgical History: (1) Hidradenitis suppurativa Family History Family History: Patient reports no known family medical history. Social History Social History: (1) No significant social history Review of Systems ROS Narrative CONSTITUTIONAL: No weight loss, fever, chills, weakness or fatigue. HEENT: Eyes: No visual loss, blurred vision, double vision or yellow sclerae. Ears, Nose, Throat: No hearing loss, sneezing, congestion, runny nose or sore throat. SKIN: No rash or itching. CARDIOVASCULAR: No chest pain, chest pressure or chest discomfort. No palpitations or edema. RESPIRATORY: No shortness of breath, cough or sputum. GASTROINTESTINAL: No anorexia, nausea, vomiting or diarrhea. No abdominal pain or blood. NEUROLOGICAL: No headache, dizziness, syncope, paralysis, ataxia, numbness or tingling in the extremities. No change in bowel or bladder control. MUSCULOSKELETAL: + discomfort in R axilla HEMATOLOGIC: No anemia, bleeding or bruising. LYMPHATICS: No enlarged nodes. No history of splenectomy. PSYCHIATRIC: No history of depression or anxiety. ENDOCRINOLOGIC: No reports of sweating, cold or heat intolerance. No polyuria or polydipsia. ALLERGIES: No history of asthma, hives, eczema or rhinitis. Physical Exam Physical Exam Narrative General: alert, cooperative, no distress, appears stated age Head: normocephalic, without obvious abnormality, atraumatic Eyes: conjunctivae/corneas clear. PERRL, EOM's intact Throat: lips, mucosa, and tongue normal. MMM Neck: supple, symmetrical, trachea midline, and no JVD Lungs: clear to auscultation bilaterally Heart: regular rate and rhythm, S1, S2 normal, no murmur, click, rub or gallop Abdomen: soft, non-tender, non-distended, bowel sounds normal; no masses or organomegaly Extremities: R axilla with area of palpable induration, no fluctuance, slightly tender to palpation, +rubor Pulses: 2+ and symmetric Skin: skin color, texture, turgor normal; no rashes or lesions Neurologic: grossly normal, no focal deficits Last 24 Hour Vital Signs Date Time Temp Pulse Resp B/P Pulse Ox O2 Delivery O2 Flow Rate FiO2 03/24/17 04:00 97.2 57 20 103/60 99 Room Air 03/24/17 00:25 97.3 58 19 108/56 96 Room Air 03/23/17 21:30 97.9 57 19 109/78 100 Room Air 03/23/17 21:16 97.9 14 126/82 98 Room Air 03/23/17 17:59 97.9 14 126/82 98 Room Air 03/23/17 17:46 97.9 64 14 126/82 98 Room Air Intake and Output 03/23/17 03/24/17 19:00 07:00 Intake Total 0 ml 400 ml Balance 0 ml 400 ml Intake Oral 0 ml IV Total 400 ml Laboratory Tests Test 03/23/17 18:35 03/23/17 21:00 03/24/17 05:20 White Blood Count 4.9 K/UL (4.8-10.8) 4.8 K/UL (4.8-10.8) Red Blood Count 4.99 M/UL (4.20-5.40) 4.13 M/UL (4.20-5.40) L Hemoglobin 16.0 G/DL (12.0-16.0) 13.1 G/DL (12.0-16.0) Hematocrit 47.6 % (37.0-47.0) H 38.9 % (37.0-47.0) Mean Corpuscular Volume 95 FL (80-99) 94 FL (80-99) Mean Corpuscular Hemoglobin 32.1 PG (27.0-31.0) H 31.7 PG (27.0-31.0) H Mean Corpuscular Hemoglobin Concent 33.7 G/DL (32.0-36.0) 33.6 G/DL (32.0-36.0) Red Cell Distribution Width 11.3 % (11.6-14.8) L 11.5 % (11.6-14.8) L Platelet Count 296 K/UL (150-450) 255 K/UL (150-450) Mean Platelet Volume 6.7 FL (6.5-10.1) 6.7 FL (6.5-10.1) Neutrophils (%) (Auto) 43.3 % (45.0-75.0) L 35.8 % (45.0-75.0) L Lymphocytes (%) (Auto) 49.1 % (20.0-45.0) H 54.4 % (20.0-45.0) H Monocytes (%) (Auto) 3.9 % (1.0-10.0) 6.9 % (1.0-10.0) Eosinophils (%) (Auto) 1.4 % (0.0-3.0) 1.5 % (0.0-3.0) Basophils (%) (Auto) 2.4 % (0.0-2.0) H 1.4 % (0.0-2.0) Prothrombin Time 10.0 SEC (9.30-11.50) Prothromb Time International Ratio 1.0 (0.9-1.1) Activated Partial Thromboplast Time 29 SEC (23-33) Urine Color Yellow Urine Appearance Slightly cloudy Urine pH 6 (4.5-8.0) Urine Specific [place] 1.020 (1.005-1.035) Urine Protein 2+ (NEGATIVE) H Urine Glucose (UA) Negative (NEGATIVE) Urine Ketones 1+ (NEGATIVE) H Urine Occult Blood 1+ (NEGATIVE) H Urine Nitrite Negative (NEGATIVE) Urine Bilirubin Negative (NEGATIVE) Urine Urobilinogen 1 MG/DL (0.0-1.0) H Urine Leukocyte Esterase 2+ (NEGATIVE) H Urine RBC 2-4 /HPF (0 - 2) H Urine WBC 5-10 /HPF (0 - 2) H Urine Squamous Epithelial Cells Many /LPF (NONE/OCC) H Urine Bacteria Moderate /HPF (NONE) H Urine HCG, Qualitative Negative Sodium Level 138 mEQ/L (135-145) 137 mEQ/L (135-145) Potassium Level 3.3 mEQ/L (3.4-4.9) L 3.7 mEQ/L (3.4-4.9) Chloride Level 100 mEQ/L (98-107) 103 mEQ/L (98-107) Carbon Dioxide Level 26 mEQ/L (20-30) 24 mEQ/L (20-30) Anion Gap 12 (5-15) 10 (5-15) Blood Urea Nitrogen 12 mg/dL (7-23) 11 mg/dL (7-23) Creatinine 0.9 mg/dL (0.5-0.9) 0.7 mg/dL (0.5-0.9) Estimat Glomerular Filtration Rate > 60 mL/min (>60) > 60 mL/min (>60) Glucose Level 104 mg/dL (74-106) 108 mg/dL (74-106) H Lactic Acid Level 2.10 mmol/L (0.66-2.22) 1.20 mmol/L (0.66-2.22) Calcium Level 9.7 mg/dL (8.6-10.2) 8.8 mg/dL (8.6-10.2) Total Bilirubin 0.6 mg/dL (0.0-1.2) Aspartate Amino Transf (AST/SGOT) 18 U/L (5-40) Alanine Aminotransferase (ALT/SGPT) 14 U/L (3-33) Alkaline Phosphatase 53 U/L (35-104) Total Protein 8.5 g/dL (6.6-8.7) Albumin 4.7 g/dL (3.5-5.2) Globulin 3.8 g/dL Albumin/Globulin Ratio 1.2 (1.0-2.7) Height (Feet): 5 Height (Inches): 9.00 Weight (Pounds): 135 Medications Current Medications Medications (Trade) Dose Ordered Sig/Keith Route PRN Reason Start Time Stop Time Status Last Admin Dose Admin Acetaminophen (Tylenol) 650 mg Q4H PRN ORAL Mild Pain/Temp > 100.5 03/23/17 22:30 04/22/17 22:29 Acetaminophen/ Hydrocodone Bitart ([place] 10/325) 1 ea Q4H PRN ORAL Severe Pain (Pain Scale 7-10) 03/23/17 22:30 03/30/17 22:29 Acetaminophen/ Hydrocodone Bitart ([place] 5/325) 1 tab Q4H PRN ORAL Moderate Pain (Pain Scale 4-6) 03/23/17 22:30 03/30/17 22:29 Ceftriaxone Sodium/Dextrose (Rocephin/D5W) 55 ml @ 110 mls/hr Q24H IVPB 03/24/17 06:00 03/29/17 05:59 03/24/17 06:18 Dextrose/Sodium Chloride (D5 0.45% NS) 1,000 ml @ 100 mls/hr Q10H IV 03/23/17 23:30 04/22/17 23:29 03/24/17 01:08 Diphenhydramine HCl (Benadryl) 25 mg Q6H PRN IVP Itching 03/23/17 22:30 04/22/17 22:29 Lactobacillus Acidophilus 1 tab 1 tab TWICE A DAY ORAL 03/24/17 09:00 04/23/17 08:59 Morphine Sulfate (Morphine Sulfate) 2 mg Q4H PRN IVP Moderate Pain (Pain Scale 4-6) 03/23/17 22:30 03/30/17 22:29 Morphine Sulfate (Morphine Sulfate) 4 mg Q4H PRN IVP Severe Pain (Pain Scale 7-10) 03/23/17 22:30 03/30/17 22:29 Ondansetron HCl (Zofran) 4 mg Q6H PRN IVP Nausea & Vomiting 03/23/17 22:30 04/22/17 22:29 Assessment/Plan Problem List: (1) Abscess of right axilla Assessment & Plan: Admit to inpatient f/u blood cx Start IV abx Pain control Supp care Surgical consult to eval for need for debridement vs medical therapy If patient is required to have surgery, based on the patient's medical history, and other available ancillary data, the patient is a LOW risk for an INTERMEDIATE risk procedure. Per the most recent ACC/AHA guidelines, the patient does not need any further cardiopulmonary testing prior to the procedure and there do not appear to be any clear medical contraindications to proceeding with the proposed procedure. ICD Codes: L02.411 - Cutaneous abscess of right axilla SNOMED: [id number] ASHWIN TORRES Mar 24, 2017 07:54
[2017-03-24] MEDS ORDERED: Midazolam 2mg/2ml Inj ONE (08:00)
[2017-03-24] MEDS ORDERED: LR 1000ml ONE (08:00)
[2017-03-24] MEDS ORDERED: Sterile Water Irrig 1000ml IRRIG ONE (08:00)
[2017-03-24] MEDS ORDERED: fentaNYL 100 mcg/2 mL IV ONE (08:00)
[2017-03-24] MEDS ORDERED: Ketorolac 30mg Inj ONE (08:00)
[2017-03-24] MEDS ORDERED: Propofol 10mg/ml 20ml IV ONE (08:00)
[2017-03-24] MEDS: Lactobacillus-GG tablet ORAL SCH ×2 (09:00→18:34)
--- NOTE | 2017-03-24 10:24 | Pre-Procedure Note/Attestation ---
Pre-Procedure Note/Attestation Complete Prior to Procedure Planned Procedure: right Procedure Narrative: Right axillary debridement and wound closure Attestation I attest that I discussed the nature of the procedure; its benefits; risks and complications; and alternatives (and the risks and benefits of such alternatives ), prior to the procedure, with the patient (or the patient's legal event sales representative). I attest that, if there was a reasonable possibility of needing a blood transfusion, the patient (or the patient's legal event sales representative) was given the [facility] standardized written summary, pursuant to the Bernard Avinger Blood Safety Act ([place] Health and Safety Code # 1645, as amended). I attest that I re-evaluated the patient just prior to the surgery and that there has been no change in the patient's H&P, except as documented below: MACY CHO Mar 24, 2017 10:24
[2017-03-24] MEDS ORDERED: Bacitracin 50000 Units Vial ONE (10:44)
[2017-03-24] MEDS ORDERED: Lidocaine 1% 10mg/ml/Epi 0.005mg/ml 30ml vial INJ ONE (10:44)
[2017-03-24] MEDS ORDERED: LR 1000ml 1,000 ML IVLG SCH (11:47)
--- NOTE | 2017-03-24 11:47 | Anethesia Preoperative Eval ---
Anesthesia Pre-op PMH/ROS General Date of Evaluation: Mar 24, 2017 Time of Evaluation: 10:55 Anesthesiologist: Kelley ASA Score: ASA 2 Mallampati Score Class I : Soft palate, uvula, fauces, pillars visible Class II: Soft palate, uvula, fauces visible Class III: Soft palate, base of uvula visible Class IV: Only hard plate visible Mallampati Classification: Class II Surgeon: Minnie Diagnosis: R axillary hydradenitis Surgical Procedure: Excision of R axillary HS Anesthesia History: none Family History: no anesthesia problems Allergies: Coded Allergies: No Known Allergies (Unverified , 01/23/17) Medications: see eMAR Past Medical History Cardiovascular: Denies: CAD, HTN, MO, arrhythmia, other, valve dz Pulmonary: Denies: COPD, JOHN, asthma, other Gastrointestinal/Genitourinary: Denies: CRI, ESRD, GERD, other Neurologic/Psychiatric: Denies: CVA, TIA, dementia, depression/anxiety, other Endocrine: Denies: DM, hypothyroidism, other, steroids HEENT: Denies: CHALKYITSIK (L), CHALKYITSIK (R), cataract (L), cataract (R), glaucoma, other Hematology/Immune: Denies: DVT, anemia, bleeding disorder, other Musculoskeletal/Integumentary: Denies: DDD, DJD, OA, RA, edema, other PMH Narrative: as above PSxH Narrative: see chart Anesthesia Pre-op Phys. Exam Physician Exam Last Vital Signs Date Time Temp Pulse Resp B/P Pulse Ox O2 Delivery O2 Flow Rate FiO2 03/24/17 04:00 97.2 57 20 103/60 99 Room Air Constitutional: NAD Neurologic: CN 2-12 intact Cardiovascular: RRR, no M/R/G Respiratory: CTA Gastrointestinal: S/NT/ND Airway Exam Mallampati Score: Class II MO: full Neck: flexible ROM: full Teeth: intact Dentures: no lower, no upper Anesthesia Pre-op A/P Labs Hematology Test 03/23/17 18:35 03/24/17 05:20 White Blood Count 4.9 K/UL (4.8-10.8) 4.8 K/UL (4.8-10.8) Red Blood Count 4.99 M/UL (4.20-5.40) 4.13 M/UL (4.20-5.40) L Hemoglobin 16.0 G/DL (12.0-16.0) 13.1 G/DL (12.0-16.0) Hematocrit 47.6 % (37.0-47.0) H 38.9 % (37.0-47.0) Mean Corpuscular Volume 95 FL (80-99) 94 FL (80-99) Mean Corpuscular Hemoglobin 32.1 PG (27.0-31.0) H 31.7 PG (27.0-31.0) H Mean Corpuscular Hemoglobin Concent 33.7 G/DL (32.0-36.0) 33.6 G/DL (32.0-36.0) Red Cell Distribution Width 11.3 % (11.6-14.8) L 11.5 % (11.6-14.8) L Platelet Count 296 K/UL (150-450) 255 K/UL (150-450) Mean Platelet Volume 6.7 FL (6.5-10.1) 6.7 FL (6.5-10.1) Neutrophils (%) (Auto) 43.3 % (45.0-75.0) L 35.8 % (45.0-75.0) L Lymphocytes (%) (Auto) 49.1 % (20.0-45.0) H 54.4 % (20.0-45.0) H Monocytes (%) (Auto) 3.9 % (1.0-10.0) 6.9 % (1.0-10.0) Eosinophils (%) (Auto) 1.4 % (0.0-3.0) 1.5 % (0.0-3.0) Basophils (%) (Auto) 2.4 % (0.0-2.0) H 1.4 % (0.0-2.0) Coagulation Test 03/23/17 18:35 Prothrombin Time 10.0 SEC (9.30-11.50) Prothromb Time International Ratio 1.0 (0.9-1.1) Activated Partial Thromboplast Time 29 SEC (23-33) Chemistry Test 03/23/17 18:35 03/23/17 21:00 03/24/17 05:20 Sodium Level 138 mEQ/L (135-145) 137 mEQ/L (135-145) Potassium Level 3.3 mEQ/L (3.4-4.9) L 3.7 mEQ/L (3.4-4.9) Chloride Level 100 mEQ/L (98-107) 103 mEQ/L (98-107) Carbon Dioxide Level 26 mEQ/L (20-30) 24 mEQ/L (20-30) Anion Gap 12 (5-15) 10 (5-15) Blood Urea Nitrogen 12 mg/dL (7-23) 11 mg/dL (7-23) Creatinine 0.9 mg/dL (0.5-0.9) 0.7 mg/dL (0.5-0.9) Estimat Glomerular Filtration Rate > 60 mL/min (>60) > 60 mL/min (>60) Glucose Level 104 mg/dL (74-106) 108 mg/dL (74-106) H Lactic Acid Level 2.10 mmol/L (0.66-2.22) 1.20 mmol/L (0.66-2.22) Calcium Level 9.7 mg/dL (8.6-10.2) 8.8 mg/dL (8.6-10.2) Total Bilirubin 0.6 mg/dL (0.0-1.2) Aspartate Amino Transf (AST/SGOT) 18 U/L (5-40) Alanine Aminotransferase (ALT/SGPT) 14 U/L (3-33) Alkaline Phosphatase 53 U/L (35-104) Total Protein 8.5 g/dL (6.6-8.7) Albumin 4.7 g/dL (3.5-5.2) Globulin 3.8 g/dL Albumin/Globulin Ratio 1.2 (1.0-2.7) Urine Test Test 03/23/17 18:35 Urine HCG, Qualitative Negative Risk Assessment & Plan Assessment: ASA 2 Plan: GA with LMA Status Change Before Surgery: No Pre-Antibiotics Drug: Ancef 1gr. Given Within 1 Hr of Incision: Yes Time Given: 11:15 MARIA ALEJANDRE M.D. Mar 24, 2017 11:47
[2017-03-24] MEDS ORDERED: Midazolam 2mg/2ml Inj IVP PRN (12:00)
[2017-03-24] MEDS ORDERED: Hydromorphone 0.5mg/0.5ml inj IVP PRN ×2 (12:00→14:30)
[2017-03-24] MEDS ORDERED: DiphenhydrAMINE 50mg/ml Inj IVP PRN ×2 (12:00→14:30)
[2017-03-24] MEDS ORDERED: Metoclopramide 10mg/2ml Inj IVP PRN (12:00)
[2017-03-24] MEDS ORDERED: Meperidine 25mg/0.5ml Inj IV PRN (12:00)
--- NOTE | 2017-03-24 12:05 | Operative Note - PDOC ---
Operative Note Operative Note Pre-op Diagnosis: R axillary infected tissue Procedure: R axillary debridement and flap elevation Post-op Diagnosis: same as pre-op Surgeon: Minnie Salt Grinder: [place] Anesthesia: general Specimen: yes Complications: none Condition: stable Drains: none Implant(s) used?: No MACY CHO Mar 24, 2017 12:05
--- NOTE | 2017-03-24 12:18 | Immediate Post-Op Evaluation ---
Immediate Post-Op Evalulation Immediate Post-Op Evalulation Procedure: Excision and closure of R axillary HS Date of Evaluation: Mar 24, 2017 Time of Evaluation: 12:16 IV Fluids: 700 Blood Products: none Estimated Blood Loss: min Urinary Output: none Blood Pressure Systolic: 136 Blood Pressure Diastolic: 58 Pulse Rate: 72 Respiratory Rate: 20 O2 Sat by Pulse Oximetry: 99 Temperature (Fahrenheit): 97.6 Pain Score (1-10): 2 Nausea: No Vomiting: No Complications none Patient Status: reacts, patent, none Hydration Status: adequate MARIA ALEJANDRE M.D. Mar 24, 2017 12:18
[2017-03-24] MEDS ORDERED: HYDROmorphone 1mg/ml Carpuject IVP PRN (14:30)
--- NOTE | 2017-03-24 15:27 | 48 Hour Post Anesthesia Eval ---
Post Anesthesia Evaluation Procedure: Excision and closure of R axillary HS Date of Evaluation: Mar 24, 2017 Time of Evaluation: 15:27 Blood Pressure Systolic: 143 0: 65 Pulse Rate: 51 Respiratory Rate: 14 Temperature (Fahrenheit): 98 O2 Sat by Pulse Oximetry: 100 Airway: patent Nausea: No Vomiting: No Pain Intensity: 3 Hydration Status: adequate Cardiopulmonary Status: Stable Mental Status/LOC: patient returned to baseline Follow-up Care/Observations: 0 Post-Anesthesia Complications: 0 Follow-up care needed: N/A Jeison Tejada MD Mar 24, 2017 15:27
[2017-03-24] MEDS: ceFAZolin sod 1 GM in D5W 55 ML IV SCH (18:34)
[2017-03-24] MEDS: Heparin 5000 units/ml inj SUBQ SCH (20:12)
--- NOTE | 2017-03-24 20:30 | Operative Note - Dictated ---
PREOPERATIVE DIAGNOSIS: Right axillary abscess. POSTOPERATIVE DIAGNOSIS: Right axillary abscess. PROCEDURES: 1. Debridement of right axillary tissue. 2. Elevation of a superior axillary fasciocutaneous flap for closure of right axillary wound measuring 5 x 5 cm. 3. Elevation of an inferior axillary fasciocutaneous flap for closure of right axillary wound. SURGEON: Bety Hartman M.D. PAPER [employer] P[employer]P MILL OPERATOR: Eleazar Hugo M.D. ANESTHESIA: General. COMPLICATIONS: None. DRAINS: None. SPECIMEN: Included right axillary tissue. DISPOSITION: Stable to the recovery room. INDICATIONS FOR SURGERY: This is a 32-year-old female, who has previously undergone reconstruction of her perineum and groin as well as buttock regions for infection secondary to hidradenitis, who re-presented to the emergency room with right axillary pain with an abscess that was associated with her symptoms. She was started on IV antibiotics and on evaluation by me, I felt that she was an appropriate candidate for a combined debridement as well as flap reconstruction of her wound. She understood the risks and benefits of surgery and agreed to proceed. DETAILS OF THE OPERATION: The patient was brought to the operating room and laid in the supine position on the operating room table. Her right axilla was prepped and draped in a sterile and usual fashion. We first began by injecting a total of 10 mL of lidocaine with epinephrine in and around the infected tissue in the right axilla. Once this was done, the preoperative markings that were made in the shape of an ellipse were then incised using a #15 blade. Once the incision was made, electrocautery was then used to dissect the tissue all the way down to the level of the axillary fascia taking care to remove all the infected tissue and granulation tissue associated with the abscess. There was no turbid fluid encountered. As such, it was felt that it would be appropriate to perform definitive closure of the wound at this time and it seems that the abscess was resolving. The wound was copiously irrigated with pulse lavage, hemostasis was achieved, and then the defect that resulted was 5 x 5 cm and was not amenable to primary closure. As such, first a superior axillary fasciocutaneous flap was elevated by making proximal distal incision with full mobilization of the flap based off of perforators of the axillary artery. This was insufficient to fully close the wound. As such, an inferior fasciocutaneous flap based off of perforators of the thoracodorsal artery was elevated with proximal and distal incisions made to fully mobilize the flap. With this done, both flaps could be brought in opposition to one another without any tension and the wound was then once again explored to make sure there was no bleeding, which was not and it was copiously then again irrigated with pulse lavage. Then, we began the layered closure of the wound by reapproximating the flaps using #0 and 2-0 Vicryl sutures as well as 3-0 Vicryl sutures for the dermis and the skin was then closed with multiple interrupted 3-0 Prolene sutures. Dermabond was then placed on top of the incision. The patient tolerated the procedure well and compressive dressings were applied. Bety Hartman M.D. DR: MEDHAT JOB#: [id number] CC:
[2017-03-24] MEDS ORDERED: Zolpidem 5mg tab ORAL PRN (21:00)
[2017-03-25] VITALS: BP 143/64
[2017-03-25] MEDS: ceFAZolin sod 1 GM in D5W 55 ML IV SCH (02:37)
[2017-03-25 04:00] VITALS: BP 126/57
[2017-03-25] MEDS: D5 1/2NS 1,000 ML IV SCH (05:21)
[2017-03-25] MEDS: cefTRIAXone 1 GM in D5W 55 ML IVPB SCH (05:22)
[2017-03-25 08:00] VITALS: BP 135/67
[2017-03-25] MEDS: Lactobacillus-GG tablet ORAL SCH (09:00)
[2017-03-25] MEDS: Heparin 5000 units/ml inj SUBQ SCH (09:14)
[2017-03-25] MEDS ORDERED: DOXYCYCLINE HY100 M6 PO (10:38)
[2017-03-25] MEDS ORDERED: NORCO 5-325 TA1 EAC1 ORAL (10:38)
[2017-03-25] MEDS ORDERED: D5 1/2NS 1000ml IV ONE ×2 (12:21)
[2017-03-25] MEDS ORDERED: Tubing IV Secondary IV ONE (12:21)
--- NOTE | 2017-03-25 14:36 | Discharge Summary ---
Discharge Summary Hospital Course Date of Admission Mar 23, 2017 at 19:30 Date of Discharge Mar 25, 2017 at 12:22 Admitting Diagnosis R axillary abscess Reason for Hospitalization: asa christy HPI Violet Oviedo is a 32 year old female who was admitted on Mar 23, 2017 at 19:30 for R axillary abscess Consultations Surgery Procedures See operative report Hospital Course 32 y/o female who presented to the ED with c/o R axillary discomfort and tenderness, seen by Surgery and dx with a R axillary abscess, admitted for IV abx, taken to OR for operative I+D, no periop or postop complications. Pt was then dced home on PO abx and pain meds and will f/u with surgeon in 1-2 weeks as outpt. Discharge Medications Continued Medications: Doxycycline Hyclate (Doxycycline Hyclate) 100 Mg Tablet 100 MG PO BID, #14 TAB Hydrocodone Bit/Acetaminophen 5-325* (Jamul 5-325 Tablet*) 1 Each Tablet 1 TAB ORAL Q4-6HR PRN for For Pain, #40 TAB Discharge Condition Upon Discharge: stable Discharge Disposition Patient was discharged to Home (01) Discharge Diagnoses: (1) Abscess of right axilla ASHWIN TORRES Mar 25, 2017 14:36
== END 2017-03-25 12:22 | disposition home or self-care (01) | DRG 572 ==
LOC: EMR 18:07 → 3E 19:30 → EDBEDREQ 19:39
PROC: 0JBD0ZZ Excision of Right Upper Arm Subcutaneous Tissue and Fascia, Open Approach (ICD-10-PCS; principal; 2017-03-24 12:00)
PROC: 0JXD0ZZ Transfer Right Upper Arm Subcutaneous Tissue and Fascia, Open Approach (ICD-10-PCS; principal; 2017-03-24 12:00)
DX: L02.411 Cutaneous abscess of right axilla (principal); L73.2 Hidradenitis suppurativa
CPT/HCPCS: 36415; 80048; 80053; 81003; 81025; 83605; 85025; 85610; 85730; 86850; 86900; 86901; 87040; 87086; 94003; 94150; J2250; J2405; J8499